=== PATIENT | male | born 1960 | race Caucasian/White ===

== ENCOUNTER 2017-08-20 13:23 | Day surgery (SDC) | payer OTHER ==
[~2017-08-20] VITALS: Ht 170.2 cm; Wt 85.5 kg
[2017-08-20 13:47] VITALS: Ht 170.2 cm; Wt 85.5 kg
[2017-08-20] MEDS ORDERED: [UNRECOGNIZED DRUG - REMARK] (14:03)
[2017-08-20 14:34] VITALS: BP 140/89; PULSE 97; RESP 16
--- NOTE | 2017-08-20 15:15 | OPPN ---
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
[2017-08-20] MEDS ORDERED: FENTAnyl 50 MCG/ML VIAL ONE (15:17)
[2017-08-20] MEDS ORDERED: MIDAZOLAM 1 MG/ML 2 ML INJ ONE ×2 (15:17)
[2017-08-20 15:42] VITALS: BP 140/91; RESP 20
--- NOTE | 2017-08-21 08:39 | GILP ---
DATE OF PROCEDURE: PREOPERATIVE DIAGNOSIS: Rectal bleeding. POSTOPERATIVE DIAGNOSIS: Infiltrating carcinoma extending from rectum about 2 cm above anal verge a ll the way to the rectosigmoid at 12 cm level. Somewhat poor prep in the right colon. DESCRIPTION OF PROCEDURE: The patient was put in left lateral decubitus after obtaining informed co nsent. He was sedated with 3 mg IV Versed and 50 mcg of fentanyl. A rectal exam done. A mass was felt. I advanced an Olympus video colonoscope, immediately I saw infiltrating ulcerated mass extend ing from the rectum about 2 cm above the anal verge all the way to the rectosigmoid at about 12 cm l evel, nearly 10 cm long annular infiltrating carcinoma, bleeds easily. This was photographed and bi opsies were done. Higher up all the way to cecum, the scope was advanced. Due to poor prep, cecum was not well examined and ascending colon, transverse colon, descending colon, sigmoid colon unremar kable except a tumor infiltrating lesion in the rectosigmoid into the rectum. PLAN: Will be to consider CT scan of the abdomen and pelvis with contrast and proceed with rectal u ltrasound and oncological opinion and surgical opinion on this patient immediately. Dictated By: WILEY ALBA Conf#: [id number] DID#: [id number] CC: Elder Carrion;*EndCC*
== END 2017-08-20 20:19 | disposition home or self-care (01) ==
LOC: GIL 13:23
PROVIDERS: ATTEND Internal Medicine
DX: C19 Malignant neoplasm of rectosigmoid junction (principal)
CPT/HCPCS: 45380; 88305; J2250; J3010; Z7610

== ENCOUNTER 2018-08-16 08:27 | Day surgery (SDC) | END 2018-08-16 12:25 | disposition home or self-care (01) ==

== ENCOUNTER 2018-12-23 08:20 | Inpatient (IN) | payer OTHER ==
[~2018-12-23] VITALS: Ht 165.1 cm; Wt 83.7 kg
[2018-12-23] VITALS (33 sets, daily range): BP systolic 121–160; BP diastolic 67–108; PULSE 81–108; RESP 10–19; Ht 165.1 cm; Wt 83.7 kg
[~2018-12-23 08:20] MED LIST: AMPICILLIN/SULB 3 GM/NS (PMX) 100 ML IVPB SCH; SOD CHLORIDE 0.9% 1,000 ML IV ONE; [UNRECOGNIZED DRUG - REMARK]
[2018-12-23] MEDS ORDERED: PEG1POWD PO (08:45)
[2018-12-23] MEDS ORDERED: METO-429 PO (08:46)
[2018-12-23] MEDS ORDERED: MIDAZOLAM 1 MG/ML 2 ML INJ ONE (10:21)
[2018-12-23] MEDS ORDERED: ROCURONIUM 50 MG INJ ONE (10:21)
[2018-12-23] MEDS ORDERED: GLYCOPYRROLATE 0.4 MG INJ ONE (10:21)
[2018-12-23] MEDS ORDERED: PROPOFOL 20 ML ONE (10:21)
[2018-12-23] MEDS ORDERED: CEFAZOLIN 1 GM INJ ONE (10:21)
[2018-12-23] MEDS ORDERED: NEOSTIGMINE 3 MG/3 ML SYRINGE ONE (10:21)
[2018-12-23] MEDS ORDERED: FENTAnyl 50 MCG/ML VIAL ONE (10:22)
[2018-12-23] MEDS ORDERED: ONDANSETRON 4 MG INJ ONE (10:22)
[2018-12-23] MEDS ORDERED: DEXAMETHASONE 4 MG/ML 5 ML INJ ONE (10:22)
[2018-12-23] MEDS ORDERED: morphine SULFATE/PF (10 MG/10 ML) INJ ONE (10:24)
--- NOTE | 2018-12-23 11:07 | PREAC ---
Date/Time of Note Date/Time of Note DATE: 12/23/18 TIME: 11:06 Anesthesia Eval and Record Evaluation Time Pre-Procedure Interview DATE: 12/23/18 TIME: 11:06 Age 58 Sex male NPO: 8 hrs Preoperative diagnosis LOW RECTAL CANCER Planned procedure LOW ANTERIOR RESECTION Past Medical History Past Medical History: Includes Cardio: HTN GI: Obesity Surgery & Anesthesia Issues No known issue Meds Anticoagulation: No Beta Mati within 24 hr: No Reason Beta Mati not given: Pt. not on B-Mati Reported Medications Peg 3350/Na Sulf,Bicarb,Cl/KCl (Golytely Packet) 1 Each Powd.pack, 1 GAL PO ONCE 12/23/18 Discontinued Reported Medications Metoprolol Tartrate* (Lopressor*) 50 Mg Tab, 50 MG PO BID, #60 TAB 12/23/18 [Unknown Stomach Med] No Conflict Check 08/20/17 Current Medications Ampicillin Sodium/ Sulbactam Sodium 100 ml @ 200 mls/hr PRE-OP IVPB ; Start 12/23/18 at 06:00; Stop 12/23/18 at 18:00 Sodium Chloride 1,000 ml @ 75 mls/hr [id number] ONCE IV ; Start 12/23/18 at 06:00; Stop 12/23/18 at 19:19 Meds reviewed: Yes Allergies Coded Allergies: No Known Drug Allergies (Verified Allergy, Unknown, 12/23/18) Allergies Reviewed: Yes Labs/Studies Labs Reviewed: Reviewed by anesthesiologist Blood Bank Test 12/23/18 09:27 Antibody Screen NEGATIVE Blood Product Summary Counts Blood Type O POSITIVE Crossmatch Red Blood Cells test: N/A Studies: ECG (NL), CXR (NAPD) Pre-procedure Exam Last vitals Vital Signs Date Temp Pulse Resp B/P (MAP) Pulse Ox O2 O2 Flow FiO2 Time Delivery Rate 12/23/18 98.2 107 16 160/108 99 Room Air 08:35 (125) Airway: Adequate mouth opening, Adequate thyromental dist Mallampati: Mallampati II Teeth: Normal Lung: Normal Heart: Normal ASA Physical Status ASA physical status: 2 Emergency: None Planned Anesthetic General/MAC: ETT Neuraxial: Epidural Planned Pain Management Epidural, Sub-arachniod narcotics, Parenteral pain med Pre-operative Attestations Prior to commencing anesthesia and surgery, the patient was re-evaluated, there was verification of: *The patient's identity *The results of appropriate recent lab work and preoperative vital signs *The above evaluation not changing prior to induction *Anesthetic plan, risk benefits, alternative and complications discussed with patient/family; questions answered; patient/family understands, accepts and wishes to proceed. Talon Price M.D. Dec 23, 2018 11:07
[2018-12-23] MEDS ORDERED: NALBUPHINE HCL (10 MG/1 ML) INJ IV PRN (11:30)
[2018-12-23] MEDS ORDERED: ONDANSETRON 4 MG INJ IV PRN ×3 (11:30→15:30)
[2018-12-23] MEDS ORDERED: HYDROmorphONE 1 MG/5 ML IV SYRINGE IV PRN ×2 (11:30)
[2018-12-23] MEDS ORDERED: MIDAZOLAM 1 MG/ML 2 ML INJ IV PRN (11:30)
[2018-12-23] MEDS ORDERED: IPRATROPIUM (NEB) 0.5 MG/2.5 ML AMP HHN PRN (11:30)
[2018-12-23] MEDS ORDERED: TRIMETHOBENZAMIDE 100 MG/ML VIAL IM PRN ×2 (11:30)
[2018-12-23] MEDS ORDERED: OXYCODONE/ACETAMINOPHEN (5/325) TAB PO PRN ×2 (11:30)
[2018-12-23] MEDS ORDERED: EPHEDrine SULFATE 50 MG/5 ML SYG IV PRN (11:30)
[2018-12-23] MEDS ORDERED: FENTAnyl 50 MCG/ML VIAL IV PRN ×3 (11:30)
[2018-12-23] MEDS ORDERED: hydrALAzine 20 MG INJ IV PRN (11:30)
[2018-12-23] MEDS ORDERED: NALOXONE (0.4 MG/ML) INJ IV PRN ×2 (11:30→13:00)
[2018-12-23] MEDS ORDERED: DIPHENHYDRAMINE 50 MG INJ IV PRN ×2 (11:30)
[2018-12-23] MEDS ORDERED: HYDROmorphONE 0.5 MG/0.5 ML SYG IV PRN ×2 (11:30)
[2018-12-23] MEDS ORDERED: MEPERIDINE 25 MG INJ IV PRN (11:30)
[2018-12-23] MEDS ORDERED: ALBUTEROL 0.083% (NEB) 2.5 MG/3 ML AMP HHN PRN (11:30)
[2018-12-23] MEDS ORDERED: ROPIVACAINE 0.2% 20 ML VIAL ONE ×2 (11:57→13:12)
[2018-12-23] MEDS ORDERED: PIPER-TAZO 3.375 GM IV (PMX) 100 ML IVPB SCH (12:30)
[2018-12-23] MEDS ORDERED: ACETAMINOPHEN 1000MG/100ML IV 100 ML IVPB PRN (15:30)
[2018-12-23] MEDS ORDERED: morphine 1 MG/ML 30 ML (PCA) IV SCH (15:30)
--- NOTE | 2018-12-23 15:30 | SIPON ---
Date/Time of Note Date/Time of Note DATE: 12/23/18 TIME: 15:27 Operative Report Preoperative Diagnosis Low rectal cancer Postoperative Diagnosis Same Operation/Procedure Performed Low anterior resection with mobilization of the splenic flexure rigid sigmoidoscopy and diverting ileostomy Surgeon see signature line assistant coach Second assist: FELIPE CRESPO MD Anesthesia: general Estimated blood loss: 250 - 300 ml's Transfusion Required none Specimen Distal sigmoid and rectum as well as additional rectal stump and then final distal margin Grafts/Implants none Complications none PRITESH TANNER MD Dec 23, 2018 15:30
[2018-12-23] MEDS: HYDROmorphONE 1 MG/5 ML IV SYRINGE IV PRN ×2 (15:50→16:19)
[2018-12-23] MEDS: LABETALOL HCL 20MG INJ IV PRN ×3 (16:20→16:56)
--- NOTE | 2018-12-23 17:08 | OPR ---
DATE OF OPERATION: 12/23/2018 PREOPERATIVE DIAGNOSIS: Low rectal cancer. POSTOPERATIVE DIAGNOSIS: Low rectal cancer. PROCEDURES: 1. Low anterior resection. 2. Mobilization of splenic flexure. 3. Rigid sigmoidoscopy. 4. Diverting ileostomy. ANESTHESIA: General. ANESTHESIOLOGIST: Talon Price MD SURGEON: Murali Courtney MD FIRST BREAKER FEEDER: Dylan Estes MD and Matt Garcia MD INDICATIONS FOR PROCEDURE: The patient is a 58-year-old male who was previously diagnosed with a rec titi cancer. He underwent neoadjuvant chemotherapy and radiation with relatively good response; howev er, there was evidence of residual tumor on endoscopic ultrasound. The patient was counseled as to t he risks versus benefits of surgery including possible ostomy placement. He consented and was schedu led for surgery. DESCRIPTION OF PROCEDURE: The patient was brought to the operating theater, placed under endotrachea l tube anesthesia. Epidural catheter had been placed previous to induction of anesthesia. The patie nt was then put into lithotomy position and a Hernandez catheter was placed. The abdomen was then shaved , prepped and draped in the usual sterile fashion. A lower midline incision was made from the umbili cus to the symphysis pubis. Subcutaneous tissue was dissected down to the anterior rectus sheath. T he linea alba was incised and the abdomen was opened throughout the course of the skin of the incisio n. The Hardeep retractor was then placed in the standard fashion and the small intestines were gently packed into the upper quadrants of the abdomen. The left colon was mobilized by taking down the lef t white line of Toldt. Dissection then continued into the pelvis. A suitable point of transection a t the rectosigmoid junction was then identified, cleared of its mesentery and the bowel was transecte d with the JEFERSON stapler. A mesorectal dissection of the rectum then took place using a combination of cautery and the LigaSure device. Dissection continued very distal and appeared that the tumor was a t the anorectal junction; therefore the entire rectum was mobilized. The tumor was then palpated and the distal rectum was then transected using the contour stapler. The specimen was removed and gross analysis revealed that the tumor was very close to the margin; therefore additional mobilization of the rectum took place for additional 1 to 2 cm and again, the rectum was transected with a LigaSure d evice. The specimen was analyzed again by attending pathologist, Dr. Dexter Salmon, with frozen se ction. There was no evidence of residual tumor. Preparations for reanastomosis were then made; lemus ritu, it was deemed that the bowel would not reach the necessary anastomotic site of the rectal stump; therefore, it was necessary to completely mobilize the splenic flexure. Anastomosis was then create d using #29 EEA. The descending colon staple line was transected and the #29 anvil was placed in it and using a pursestring device, a pursestring suture was utilized to secure the end of the bowel. Dr Marsha Garcia then went below and inserted the first of dilators then the EEA device. It was identified that there was an opening in the rectal stump. This opening was then oversewn with multiple 2-0 Harry ryl sutures in interrupted fashion. Anastomosis was then created with the EEA device in the standard fashion. Both donuts were intact; however when rigid sigmoidoscopy was performed with warm saline i n the pelvis, there appeared to be some residual air leak; therefore, it was deemed necessary to perf orm diverting ileostomy. At this point, the abdomen was irrigated. Lap, sponge and instrument count s were correct. A suitable point for the ileostomy placement was identified and an elliptical incisi on was made in the right lower quadrant of the abdomen. Subcutaneous tissue was dissected with caute ry down to the anterior rectus sheath. It was scored in cruciate fashion. The rectus fibers were th en spread and the posterior peritoneum and rectus sheath were also transected. A suitable point of t he distal ileum was brought through and the mesentery was cleared and the JEFERSON stapler was then used t o completely transect the intestine. The distal portion was sutured to the dermis of the skin with 2 -0 Prolene suture. The proximal portion was tacked to the abdominal wall fascia. At this point, the abdomen was closed with #1 looped PDS suture in running fashion. It was then irrigated with Betadin e. Final skin approximation took place with skin jennifer. A sterile dressing was applied. The prox imal limb of the ileostomy then underwent transection of the staple line and it was then matured in B rooke fashion with multiple 3-0 chromic sutures and an ileostomy appliance bag was applied. The helio ent tolerated the procedure well. The total blood loss was approximately 300 mL. There were no comp lications and the patient was transported in stable condition to the recovery room. Dictated By: MURALI COURTNEY MD TL/NTS Conf#: [id number] DID#: [id number] CC: CALDERON PEREZ MD;*EndCC*
[2018-12-23] MEDS: D5W-0.45 NACL + KCL 20 MEQ 1,000 ML IV SCH ×2 (17:52→23:30)
[2018-12-23] MEDS: FENTAnyl 2MCG/ML-ROPIV 0.2% 100 ML BAG EPI SCH (20:28)
[2018-12-24 00:15] VITALS: BP 100/96; PULSE 82; RESP 18
[2018-12-24] MEDS: D5W-0.45 NACL + KCL 20 MEQ 1,000 ML IV SCH ×3 (01:37→23:41)
[2018-12-24] MEDS: FENTAnyl 2MCG/ML-ROPIV 0.2% 100 ML BAG EPI SCH ×3 (03:46→20:51)
[2018-12-24 05:10] VITALS: BP 154/90; PULSE 100; RESP 19
--- NOTE | 2018-12-24 06:37 | CONS ---
Assessment/Plan Assessment/Plan Assessment/Plan (Daily) 58-year-old male with a history of rectal cancer status post chemo and radiation with a follow-up endoscopy ultrasound showing a residual tumor. He is now status post resection with diverting ileostomy PLAN Pain management Postop management per surgery Check CBC and CMP in a.m. Consultation Date/Type/Reason Admit Date/Time Dec 23, 2018 at 08:20 Date/Time of Note DATE: 12/24/18 TIME: 06:33 Hx of Present Illness This is a 58-year-old male with history of rectal cancer, status post chemoradiation. Patient now brought to the hospital for rectal surgery because of evidence of residual tumor on endoscopy ultrasound. He already underwent resection with diverting ileostomy. Except occasional pain, currently does not have any complaint. Past Medical History Home Meds Reported Medications Peg 3350/Na Sulf,Bicarb,Cl/KCl (Golytely Packet) 1 Each Powd.pack, 1 GAL PO ONCE 12/23/18 Discontinued Reported Medications Metoprolol Tartrate* (Lopressor*) 50 Mg Tab, 50 MG PO BID, #60 TAB 12/23/18 [Unknown Stomach Med] No Conflict Check 08/20/17 Medications Current Medications Hydromorphone HCl (Dilaudid) 0.2 mg Q2H PRN IV .PAIN 1-5; Start 12/23/18 at 11:30 Hydromorphone HCl (Dilaudid) 0.4 mg Q2H PRN IV .PAIN 6-10; Start 12/23/18 at 11:30 Diphenhydramine HCl (Benadryl) 25 mg Q4H PRN IV .PRURITUS; Start 12/23/18 at 11:30 Nalbuphine HCl (Nubain) 10 mg Q4H PRN IV .PRURITUS; Start 12/23/18 at 11:30 Ondansetron HCl (Zofran Inj) 4 mg Q6H PRN IV .NAUSEA/VOMITING; Start 12/23/18 at 11:30 Trimethobenzamide HCl (Tigan) 200 mg Q6H PRN IM .NAUSEA/VOMITING; Start 12/23/18 at 11:30 Naloxone HCl (Narcan) 0.2 mg Q2M PRN IV .RESP RATE; Start 12/23/18 at 11:30 Miscellaneous Information (* Miscellaneous Pharmacy Order) DURAMORPH: 2 MG E PIDU... GIVEN NEURAXIAL XX ; Start 12/23/18 at 11:30 Fentanyl/ Ropivacaine 100 ml CONT EPIDURAL EPI Last administered on 12/24/18at 03:46; Admin Dose 100 ML; Start 12/23/18 at 11:30 Naloxone HCl (Narcan) 0.2 mg Q2M PRN IV .RESP RATE; Start 12/23/18 at 13:00 Ondansetron HCl (Zofran Inj) 4 mg Q6H PRN IV NAUSEA AND/OR VOMITING; Start 12/23/18 at 15:30 Morphine Sulfate (morphine) 2 MG/HR CONTINUOUS RATE 2... Q4PCA IV ; Start 12/23/18 at 15:30 Potassium Chloride/Dextrose/ Sod Cl 1,000 ml @ 125 mls/hr Q8H IV Last administered on 12/24/18at 01:37; Admin Dose 125 MLS/HR; Start 12/23/18 at 15:30 Acetaminophen 100 ml @ 400 mls/hr Q6H PRN IVPB PAIN; Start 12/23/18 at 15:30; Stop 12/24/18 at 15:29 Clonidine (Catapres) 0.1 mg Q6H PRN PO ELEVATED BLOOD PRESSURE; Start 12/23/18 at 22:00 Allergies: Coded Allergies: No Known Drug Allergies (Verified Allergy, Unknown, 12/23/18) Social History Smoking Status: Never smoker Exam/Review of Systems Exam Vitals Vital Signs Date Temp Pulse Resp B/P (MAP) Pulse Ox O2 O2 Flow FiO2 Time Delivery Rate 12/24/18 98.2 100 19 154/90 99 Nasal 05:10 (111) Cannula 12/23/18 2.0 20:20 Intake and Output 12/23/18 12/23/18 12/24/18 1515:00 23:00 07:00 IntakeIntake Total 3000 ml 0 ml 1390 ml OutputOutput Total 1650 ml 1300 ml 1270 ml BalanceBalance 1350 ml -1300 ml 120 ml Results Results 24hrs Laboratory Tests Test 12/23/18 15:30 Urine Color COLORLESS Urine Clarity CLEAR Urine pH 8.0 Urine Specific [place] 1.008 Urine Ketones NEGATIVE Urine Nitrite NEGATIVE Urine Bilirubin NEGATIVE Urine Urobilinogen NEGATIVE Urine Leukocyte Esterase NEGATIVE Urine Microscopic RBC 33 H Urine Microscopic WBC 1 Urine Mucus FEW A Urine Hemoglobin 2+ H Urine Glucose NEGATIVE Urine Total Protein NEGATIVE Medications Medication Current Medications Hydromorphone HCl (Dilaudid) 0.2 mg Q2H PRN IV .PAIN 1-5; Start 12/23/18 at 11:3 0 Hydromorphone HCl (Dilaudid) 0.4 mg Q2H PRN IV .PAIN 6-10; Start 12/23/18 at 11:30 Diphenhydramine HCl (Benadryl) 25 mg Q4H PRN IV .PRURITUS; Start 12/23/18 at 11:30 Nalbuphine HCl (Nubain) 10 mg Q4H PRN IV .PRURITUS; Start 12/23/18 at 11:30 Ondansetron HCl (Zofran Inj) 4 mg Q6H PRN IV .NAUSEA/VOMITING; Start 12/23/18 at 11:30 Trimethobenzamide HCl (Tigan) 200 mg Q6H PRN IM .NAUSEA/VOMITING; Start 12/23/18 at 11:30 Naloxone HCl (Narcan) 0.2 mg Q2M PRN IV .RESP RATE; Start 12/23/18 at 11:30 Miscellaneous Information (* Miscellaneous Pharmacy Order) DURAMORPH: 2 MG EPIDU... GIVEN NEURAXIAL XX ; Start 12/23/18 at 11:30 Fentanyl/ Ropivacaine 100 ml CONT EPIDURAL EPI Last administered on 12/24/18at 03:46; Admin Dose 100 ML; Start 12/23/18 at 11:30 Naloxone HCl (Narcan) 0.2 mg Q2M PRN IV .RESP RATE; Start 12/23/18 at 13:00 Ondansetron HCl (Zofran Inj) 4 mg Q6H PRN IV NAUSEA AND/OR VOMITING; Start 12/23/18 at 15:30 Morphine Sulfate (morphine) 2 MG/HR CONTINUOUS RATE 2... Q4PCA IV ; Start 12/23/18 at 15:30 Potassium Chloride/Dextrose/ Sod Cl 1,000 ml @ 125 mls/hr Q8H IV Last administered on 12/24/18at 01:37; Admin Dose 125 MLS/HR; Start 12/23/18 at 15:30 Acetaminophen 100 ml @ 400 mls/hr Q6H PRN IVPB PAIN; Start 12/23/18 at 15:30; Stop 12/24/18 at 15:29 Clonidine (Catapres) 0.1 mg Q6H PRN PO ELEVATED BLOOD PRESSURE; Start 12/23/18 at 22:00 ROSAURA COLLINS MD Dec 24, 2018 06:37
[2018-12-24 07:51] VITALS: BP 138/81; PULSE 109; RESP 18
[2018-12-24] MEDS ORDERED: FENTAnyl 2MCG/ML-ROPIV 0.2% 100 ML BAG EPI SCH (11:30)
[2018-12-24 13:42] VITALS: BP 145/85; PULSE 105; RESP 18
--- NOTE | 2018-12-24 15:05 | PN ---
Date/Time of Note Date/Time of Note DATE: 12/24/18 TIME: 14:57 Assessment/Plan VTE Prophylaxis Risk score (from [facility])>0 risk: 10 SCD applied (from [facility]): Yes Pharmacological prophylaxis: other Pharm contraindication: other Lines/Catheters IV [facility] Type (from [facility]): Peripheral IV Urinary Cath still in place: Yes Reason Cath still needed: other (indicate) Assessment/Plan Assessment/Plan 1. Rectal cancer s/p chemo and radiation with residual tumor, s/p anterior resection with diverting ileostomy on 12/23/2018, PRASHANT in place, follow up with mark arreola 2. Leukocytosis, likely surgery related, CXR Result Diagram: 12/24/18 0909 12/24/18 0909 Results 24hrs Laboratory Tests Test 12/23/18 15:30 12/24/18 09:09 Urine Color COLORLESS Urine Clarity CLEAR Urine pH 8.0 Urine Specific [place] 1.008 Urine Ketones NEGATIVE Urine Nitrite NEGATIVE Urine Bilirubin NEGATIVE Urine Urobilinogen NEGATIVE Urine Leukocyte Esterase NEGATIVE Urine Microscopic RBC 33 H Urine Microscopic WBC 1 Urine Mucus FEW A Urine Hemoglobin 2+ H Urine Glucose NEGATIVE Urine Total Protein NEGATIVE White Blood Count 18.5 H Red Blood Count 4.46 L Hemoglobin 13.8 L Hematocrit 39.1 L Mean Corpuscular Volume 87.7 Mean Corpuscular Hemoglobin 30.9 Mean Corpuscular Hemoglobin Concent 35.3 Red Cell Distribution Width 14.3 Platelet Count 203 Mean Platelet Volume 10.5 H Immature Granulocytes % 0.400 Neutrophils % 87.0 H Segmented Neutrophils % (Manual) 69 Band Neutrophils % (Manual) 18 H Lymphocytes % 5.9 L Lymphocytes % (Manual) 7 L Reactive Lymphocytes % (Manual) 4 H Monocytes % 6.6 Monocytes % (Manual) 2 Eosinophils % 0.0 Basophils % 0.1 Nucleated Red Blood Cells % 0.0 Immature Granulocytes # 0.080 H Neutrophils # 16.1 H Neutrophils # (Manual) 13.4 H Band Neutrophils # 3.3 H Lymphocytes (Manual) 1.2 Lymphocytes # 1.1 Reactive Lymphocytes # 0.7 H Monocytes # 1.2 H Monocytes # (Manual) 0.3 Eosinophils # 0.0 Basophils # 0.0 Nucleated Red Blood Cells # 0.0 Platelet Estimate NORMAL Giant Platelets 1 H Polychromasia 1+ Poikilocytosis 1+ Anisocytosis 1+ Microcytosis 1+ Prothrombin Time 15.1 H Prothrombin Time Ratio 1.2 INR International Normalized Ratio 1.18 Activated Partial Thromboplast Time 30.4 Sodium Level 135 Potassium Level 4.0 Chloride Level 103 Carbon Dioxide Level 24 Anion Gap 8 Blood Urea Nitrogen 8 Creatinine 0.66 Est Glomerular Filtrat Rate mL/min > 60 Glucose Level 132 Calcium Level 8.7 Phosphorus Level 1.9 L Magnesium Level 1.9 Subjective 24 Hr Interval Summary Free Text/Dictation abdominal pain on movement Exam/Review of Systems Exam Vitals Vital Signs Date Temp Pulse Resp B/P (MAP) Pulse Ox O2 O2 Flow FiO2 Time Delivery Rate 12/24/18 99.8 105 18 145/85 99 13:42 (105) 12/24/18 Nasal 05:10 Cannula 12/23/18 2.0 20:20 Intake and Output 12/23/18 12/23/18 12/24/18 1515:00 23:00 07:00 IntakeIntake Total 3000 ml 0 ml 1390 ml OutputOutput Total 1650 ml 1300 ml 1270 ml BalanceBalance 1350 ml -1300 ml 120 ml Constitutional: alert, oriented, well developed Head: normocephalic, atraumatic Eyes: nl conjunctiva, EOMI, nl lids, PERRL ENMT: nl external ears & nose, nl lips & teeth, nl nasal mucosa & septum Neck: supple, non-tender Respiratory: clear to auscultation, normal air movement; No congested cough, No crackles/rales, No diminished breath sounds, No intercostal retraction, No labored breathing, No respirations, No tactile fremitus, No wheezing, No other Cardiovascular: regular rate and rhythm, nl pulses; No bruits, No diastolic murmur, No edema, No gallop, No irregular rhythm, No jugular venous distention (JVD), No murmurs/extra sounds, No rub, No systolic murmur, No S3, No S4, No other Gastrointestinal: nl liver, spleen, distended, tender Musculoskeletal: nl extremities to inspection Extremities: normal pulses; No calf tenderness, No cyanosis, No clubbing, No edema, No pitting pedal edema, No palpable cord, No tenderness, No other 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: ASSEMBLIES AND INSTALLATIONS INSPECTOR II-XII intact, nl mental status, nl speech, nl strength Results Results 24hrs Laboratory Tests Test 12/23/18 15:30 12/24/18 09:09 Urine Color COLORLESS Urine Clarity CLEAR Urine pH 8.0 Urine Specific [place] 1.008 Urine Ketones NEGATIVE Urine Nitrite NEGATIVE Urine Bilirubin NEGATIVE Urine Urobilinogen NEGATIVE Urine Leukocyte Esterase NEGATIVE Urine Microscopic RBC 33 H Urine Microscopic WBC 1 Urine Mucus FEW A Urine Hemoglobin 2+ H Urine Glucose NEGATIVE Urine Total Protein NEGATIVE White Blood Count 18.5 H Red Blood Count 4.46 L Hemoglobin 13.8 L Hematocrit 39.1 L Mean Corpuscular Volume 87.7 Mean Corpuscular Hemoglobin 30.9 Mean Corpuscular Hemoglobin Concent 35.3 Red Cell Distribution Width 14.3 Platelet Count 203 Mean Platelet Volume 10.5 H Immature Granulocytes % 0.400 Neutrophils % 87.0 H Segmented Neutrophils % (Manual) 69 Band Neutrophils % (Manual) 18 H Lymphocytes % 5.9 L Lymphocytes % (Manual) 7 L Reactive Lymphocytes % (Manual) 4 H Monocytes % 6.6 Monocytes % (Manual) 2 Eosinophils % 0.0 Basophils % 0.1 Nucleated Red Blood Cells % 0.0 Immature Granulocytes # 0.080 H Neutrophils # 16.1 H Neutrophils # (Manual) 13.4 H Band Neutrophils # 3.3 H Lymphocytes (Manual) 1.2 Lymphocytes # 1.1 Reactive Lymphocytes # 0.7 H Monocytes # 1.2 H Monocytes # (Manual) 0.3 Eosinophils # 0.0 Basophils # 0.0 Nucleated Red Blood Cells # 0.0 Platelet Estimate NORMAL Giant Platelets 1 H Polychromasia 1+ Poikilocytosis 1+ Anisocytosis 1+ Microcytosis 1+ Prothrombin Time 15.1 H Prothrombin Time Ratio 1.2 INR International Normalized Ratio 1.18 Activated Partial Thromboplast Time 30.4 Sodium Level 135 Potassium Level 4.0 Chloride Level 103 Carbon Dioxide Level 24 Anion Gap 8 Blood Urea Nitrogen 8 Creatinine 0.66 Est Glomerular Filtrat Rate mL/min > 60 Glucose Level 132 Calcium Level 8.7 Phosphorus Level 1.9 L Magnesium Level 1.9 Medications Medication Current Medications Hydromorphone HCl (Dilaudid) 0.2 mg Q2H PRN IV .PAIN 1-5; Start 12/23/18 at 11:30 Hydromorphone HCl (Dilaudid) 0.4 mg Q2H PRN IV .PAIN 6-10; Start 12/23/18 at 11:30 Diphenhydramine HCl (Benadryl) 25 mg Q4H PRN IV .PRURITUS; Start 12/23/18 at 1 1:30 Nalbuphine HCl (Nubain) 10 mg Q4H PRN IV .PRURITUS; Start 12/23/18 at 11:30 Ondansetron HCl (Zofran Inj) 4 mg Q6H PRN IV .NAUSEA/VOMITING; Start 12/23/18 at 11:30 Trimethobenzamide HCl (Tigan) 200 mg Q6H PRN IM .NAUSEA/VOMITING; Start 12/23/18 at 11:30 Naloxone HCl (Narcan) 0.2 mg Q2M PRN IV .RESP RATE; Start 12/23/18 at 11:30 Miscellaneous Information (* Miscellaneous Pharmacy Order) DURAMORPH: 2 MG EPIDU... GIVEN NEURAXIAL XX ; Start 12/23/18 at 11:30 Naloxone HCl (Narcan) 0.2 mg Q2M PRN IV .RESP RATE; Start 12/23/18 at 13:00 Ondansetron HCl (Zofran Inj) 4 mg Q6H PRN IV NAUSEA AND/OR VOMITING; Start 12/23/18 at 15:30 Morphine Sulfate (morphine) 2 MG/HR CONTINUOUS RATE 2... Q4PCA IV ; Start 12/23/18 at 15:30 Potassium Chloride/Dextrose/ Sod Cl 1,000 ml @ 125 mls/hr Q8H IV Last admin istered on 12/24/18at 09:57; Admin Dose 125 MLS/HR; Start 12/23/18 at 15:30 Acetaminophen 100 ml @ 400 mls/hr Q6H PRN IVPB PAIN; Start 12/23/18 at 15:30; Stop 12/24/18 at 15:29 Clonidine (Catapres) 0.1 mg Q6H PRN PO ELEVATED BLOOD PRESSURE; Start 12/23/18 at 22:00 Fentanyl/ Ropivacaine 100 ml CONT EPIDURAL EPI Last administered on 12/24/18at 11:36; Admin Dose 100 ML; Start 12/24/18 at 11:30 EL LYNN MD Dec 24, 2018 15:05
--- NOTE | 2018-12-24 16:09 | PN ---
DATE: 12/23/2018 1. Postop day #1 status post resection of the residual cancer of the rectum, status post neoadjuvant and radiation therapy. 2. Colorectal anastomosis with jennifer. 3. Total complete diverting ileostomy. SUBJECTIVE: No specific complaint. Pain is under control with epidural. No nausea, no vomiting. T he patient has NG tube, which is draining gastric juice. Also, patient has Hernandez catheter. OBJECTIVE: GENERAL: Awake, alert. VITAL SIGNS: Temperature maximum 99.8, heart rate 105, respiration 18, blood pressure 145/85, satura tion 99% on room air. HEAD AND NECK: Normocephalic. NG tube is in place, is functioning. CHEST: Symmetrical expansion of hemithoraces. LUNGS: Decreased breathing sound at bases. HEART: Regular. ABDOMEN: Not distended. Bowel sounds hypoactive. Ileostomy bag on the ileostomy site. Bran-Pra tt drain is in place. Hernandez catheter is in place. SCD in place. I's and O's: Bran-Noel has dr ained 120 mL and NG tube has drained 350 mL gastric juice. No bile from today morning. Now it is 4 p.m. LABORATORY DATA: WBC increased to 18,500 with 87% neutrophils, with shift to the left, hemoglobin 13 .8, hematocrit 39. Chemistry: Sodium, potassium, BUN, creatinine within normal limits. Urine micro scopic hematuria. ASSESSMENT: Postop day #1 with low anterior resection of recurrent cancer of the rectum and end-to-e nd anastomosis with placement of complete diverting ileostomy for protection of the anastomosis. The patient so far is stable. Leukocytosis is accepted and expected. PLAN: Will add incentive spirometry to the treatment regimen for the patient to do it every hour whi le he is awake. Continue IV fluids with potassium. Continue epidural. Continue Hernandez catheter. Co ntinue NG tube. We will continue to follow the patient along with the medical colleagues. Dictated By: EDELMIRA ALEJO MD PS/NTS Conf#: [id number] DID#: [id number] CC: PRITESH TANNER MD;*EndCC*
[2018-12-24] MEDS ORDERED: POTASSIUM PHOSPHATE 30 MM in SOD CHLORIDE 0.9% 250 ML IVPB ONE (17:00)
[2018-12-24 19:55] VITALS: BP 140/80; PULSE 100; RESP 18
[2018-12-24 23:49] VITALS: BP 132/88; PULSE 108; RESP 18
[2018-12-25] MEDS: FENTAnyl 2MCG/ML-ROPIV 0.2% 100 ML BAG EPI SCH ×3 (04:18→21:07)
[2018-12-25 08:59] VITALS: BP 129/80; PULSE 115; RESP 18
[2018-12-25] MEDS: D5W-0.45 NACL + KCL 20 MEQ 1,000 ML IV SCH ×2 (10:05→17:43)
[2018-12-25 13:41] VITALS: BP 133/83; PULSE 125; RESP 19
[2018-12-25] MEDS ORDERED: SOD CHLORIDE 0.9% 500 ML IV ONE (15:30)
--- NOTE | 2018-12-25 15:30 | PN ---
Date/Time of Note Date/Time of Note DATE: 12/25/18 TIME: 15:28 Assessment/Plan VTE Prophylaxis [place] [facility] [place] risk: 3 SCD applied (from [facility] [place] Yes Pharmacological prophylaxis: other Pharm contraindication: other Lines/Catheters IV [facility]atheter Type (from [facility]): Peripheral IV Urinary Cath still in place: Yes Reason Cath still needed: other (indicate) Assessment/Plan Assessment/Plan 1. Rectal cancer s/p chemo and radiation with residual tumor, s/p anterior resection with diverting ileostomy on 12/23/2018, PRASHANT in place, follow up with mark arreola 2. Leukocytosis, likely surgery related, no evidence of infection 3. Sinus tachycardia, multifactorial, IVF bolus, may need small dose of metoprolol if no improvement Result Diagram: 12/25/1885812/25/18 0859 Results 24hrs Laboratory Tests Test 12/25/18 08:59 White Blood Count 14.7 #H Red Blood Count 4.27 L Hemoglobin 13.0 L Hematocrit 38.2 L Mean Corpuscular Volume 89.5 Mean Corpuscular Hemoglobin 30.4 Mean Corpuscular Hemoglobin Concent 34.0 Red Cell Distribution Width 14.7 H Platelet Count 190 Mean Platelet Volume 10.6 H Immature Granulocytes % 0.500 H Neutrophils % 86.8 H Lymphocytes % 8.3 L Monocytes % 4.2 Eosinophils % 0.1 Basophils % 0.1 Nucleated Red Blood Cells % 0.0 Immature Granulocytes # 0.080 H Neutrophils # 12.8 H Lymphocytes # 1.2 Monocytes # 0.6 Eosinophils # 0.0 Basophils # 0.0 Nucleated Red Blood Cells # 0.0 Prothrombin Time 14.0 Prothrombin Time Ratio 1.1 INR International Normalized Ratio 1.07 Activated Partial Thromboplast Time 37.6 H Sodium Level 136 Potassium Level 4.3 Chloride Level 106 Carbon Dioxide Level 25 Anion Gap 5 Blood Urea Nitrogen 11 Creatinine 0.72 Est Glomerular Filtrat Rate mL/min > 60 Glucose Level 111 Calcium Level 8.8 Phosphorus Level 2.2 L Magnesium Level 2.1 Subjective 24 Hr Interval Summary Free Text/Dictation abdominal pain Exam/Review of Systems Exam Vitals Vital Signs Date Temp Pulse Resp B/P (MAP) Pulse Ox O2 O2 Flow FiO2 Time Delivery Rate 12/25/18 98.3 125 19 133/83 98 Room Air 13:41 (100) 12/24/18 2.0 23:49 Intake and Output 12/24/18 12/24/18 12/25/18 1515:00 23:00 07:00 IntakeIntake Total 375 ml 1085 ml 875 ml OutputOutput Total 1350 ml 1700 ml 1020 ml BalanceBalance -975 ml -615 ml -145 ml Constitutional: alert, oriented, well developed Psych: no complaints, nl mood/affect Head: normocephalic, atraumatic Eyes: nl conjunctiva, EOMI, nl lids, nl sclera, PERRL ENMT: nl external ears & nose, nl lips & teeth, nl nasal mucosa & septum Neck: supple, non-tender Respiratory: clear to auscultation, normal air movement; No congested cough, No crackles/rales, No diminished breath sounds, No intercostal retraction, No labored breathing, No respirations, No tactile fremitus, No wheezing, No other Cardiovascular: regular rate and rhythm, nl pulses; No bruits, No diastolic murmur, No edema, No gallop, No irregular rhythm, No jugular venous distention (JVD), No murmurs/extra sounds, No rub, No systolic murmur, No S3, No S4, No other Gastrointestinal: distended, tender Musculoskeletal: nl extremities to inspection Extremities: normal pulses; No calf tenderness, No cyanosis, No clubbing, No edema, No pitting pedal ed kiesha, No palpable cord, No tenderness, No other 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: 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 TECHNOLOGIST II-XII intact, nl mental status, nl speech, nl strength Results Results 24hrs Laboratory Tests Test 12/25/18 08:59 White Blood Count 14.7 #H Red Blood Count 4.27 L Hemoglobin 13.0 L Hematocrit 38.2 L Mean Corpuscular Volume 89.5 Mean Corpuscular Hemoglobin 30.4 Mean Corpuscular Hemoglobin Concent 34.0 Red Cell Distribution Width 14.7 H Platelet Count 190 Mean Platelet Volume 10.6 H Immature Granulocytes % 0.500 H Neutrophils % 86.8 H Lymphocytes % 8.3 L Monocytes % 4.2 Eosinophils % 0.1 Basophils % 0.1 Nucleated Red Blood Cells % 0.0 Immature Granulocytes # 0.080 H Neutrophils # 12.8 H Lymphocytes # 1.2 Monocytes # 0.6 Eosinophils # 0.0 Basophils # 0.0 Nucleated Red Blood Cells # 0.0 Prothrombin Time 14.0 Prothrombin Time Ratio 1.1 INR International Normalized Ratio 1.07 Activated Partial Thromboplast Time 37.6 H Sodium Level 136 Potassium Level 4.3 Chloride Level 106 Carbon Dioxide Level 25 Anion Gap 5 Blood Urea Nitrogen 11 Creatinine 0.72 Est Glomerular Filtrat Rate mL/min > 60 Glucose Level 111 Calcium Level 8.8 Phosphorus Level 2.2 L Magnesium Level 2.1 Medications Medication Current Medications Hydromorphone HCl (Dilaudid) 0.2 mg Q2H PRN IV .PAIN 1-5; Start 12/23/18 at 11:30 Hydromorphone HCl (Dilaudid) 0.4 mg Q2H PRN IV .PAIN 6-10; Start 12/23/18 at 11:30 Diphenhydramine HCl (Benadryl) 25 mg Q4H PRN IV .PRURITUS; Start 12/23/18 at 11:30 Nalbuphine HCl (Nubain) 10 mg Q4H PRN IV .PRURITUS; Start 12/23/18 at 11:30 Ondansetron HCl (Zofran Inj) 4 mg Q6H PRN IV .NAUSEA/VOMITING; Start 12/23/18 at 11:30 Trimethobenzamide HCl (Tigan) 200 mg Q6H PRN IM .NAUSEA/VOMITING; Start 12/23/18 at 11:30 Naloxone HCl (Narcan) 0.2 mg Q2M PRN IV .RESP RATE; Start 12/23/18 at 11:30 Miscellaneous Information (* Miscellaneous Pharmacy Order) DURAMORPH: 2 MG EPIDU... GIVEN NEURAXIAL XX ; Start 12/23/18 at 11:30 Naloxone HCl (Narcan) 0.2 mg Q2M PRN IV .RESP RATE; Start 12/23/18 at 13:00 Ondansetron HCl (Zofran Inj) 4 mg Q6H PRN IV NAUSEA AND/OR VOMITING; Start 12/23/18 at 15:30 Morphine Sulfate (morphine) 2 MG/HR CONTINUOUS RATE 2... Q4PCA IV ; Start 12/23/18 at 15:30 Potassium Chloride/Dextrose/ Sod Cl 1,000 ml @ 100 mls/hr Q10H IV Last administered on 12/25/18at 10:05; Admin Dose 100 MLS/HR; Start 12/23/18 at 15:30 Clonidine (Catapres) 0.1 mg Q6H PRN PO ELEVATED BLOOD PRESSURE; Start 12/23/18 at 22:00 Fentanyl/ Ropivacaine 100 ml CONT EPIDURAL EPI Last administered on 12/25/18at 12:19; Admin Dose 100 ML; Start 12/24/18 at 11:30 EL LYNN MD Dec 25, 2018 15:30
--- NOTE | 2018-12-25 16:41 | PN ---
DATE: 12/25/2018 Postop day #2 status post low anterior resection of the cancer of the rectum and colorectal anastomosis and placement of diverting end ileostomy for protection of the anastomosis. SUBJECTIVE: No complaint. OBJECTIVE: GENERAL: Alert and awake. VITAL SIGNS: Temperature 98.6 maximum, heart rate 115, respirations 18, blood pressure 129/80, saturation 99% on room air. SKIN: The patient has NG tube. The patient has Hernandez catheter. There is an ileostomy bag. EXTREMITIES: SCDs on the legs. HEART: Regular, slight tachycardia. LUNGS: Clear. Decreased breathing sound at bases. ABDOMEN: Slightly distended. Bowel sounds are hypoactive. Ileostomy is not functioning yet. INPUT AND OUTPUT: Urine output was 3400 mL in the past 24 hours. NG tube drainage in the past 24 hours was 600 mL; mainly gastric juice, slightly greenish change color. LABORATORY DATA: Today, WBC 14,700 with 86% neutrophils, hemoglobin 13, hematocrit 38.2. Chemistry: Sodium, potassium, BUN, creatinine are within normal limits. ASSESSMENT AND PLAN: A 58-year-old status post low anterior resection for cancer of rectum and end-to-end anastomosis with diverting ileostomy for protection. The patient has NG tube which we will keep it for the time being. The ileostomy starts functioning properly. The patient has Hernandez catheter and has epidural. Keep the Hernandez still in place, SCD in place. Encourage incentive spirometry. The Bran-Noel drain in the pelvis has drained 60 mL in the past 24 hours. Continue current care. Continue keeping the Hernandez tube in place maybe in a couple of days. When the epidural is discontinued, then the patient can be active and mobilize. For the time being, SCDs and incentive spirometry testing of the patient. Dictated By: EDELMIRA ALEJO MD PS/NTS Conf#: [id number] DID#: [id number] CC: PRITESH TANNER MD; CALDERON PEREZ MD; EL LYNN MD;*EndCC* MTDD
[2018-12-25 17:53] VITALS: BP 149/97; PULSE 117; RESP 18
[2018-12-25 19:45] VITALS: BP 148/95; PULSE 117; RESP 20
[2018-12-26 00:07] VITALS: BP 136/96; PULSE 107; RESP 20
[2018-12-26] MEDS: D5W-0.45 NACL + KCL 20 MEQ 1,000 ML IV SCH ×2 (02:58→14:16)
[2018-12-26 04:00] VITALS: BP 139/88; PULSE 97; RESP 20
[2018-12-26] MEDS: FENTAnyl 2MCG/ML-ROPIV 0.2% 100 ML BAG EPI SCH (04:15)
[2018-12-26 08:30] VITALS: BP 136/90; PULSE 99; RESP 19
--- NOTE | 2018-12-26 11:09 | OPPN ---
Date/Time of Note Date/Time of Note DATE: 12/26/18 TIME: 11:05 Event Note Pt Marta Patel postop day #3 status post low anterior resection of the cancer of the rectum and colorectal anastomosis and placement of diverting end ileostomy for protection of the anastomosis with Epidural for post op pain management. Epidural pulled. Tip Intact. ADELA SAEZ CRNA Dec 26, 2018 11:09
[2018-12-26 14:35] VITALS: BP 132/86; PULSE 103; RESP 18
--- NOTE | 2018-12-26 15:22 | PN ---
Date/Time of Note Date/Time of Note DATE: 12/26/18 TIME: 15:20 Assessment/Plan VTE Prophylaxis [place] [facility] [place]: 8 SCD applied [place] [facility] [place] Yes Pharmacological prophylaxis: other Pharm contraindication: other Lines/Catheters IV [facility] Type (from [facility] Peripheral IV Urinary Cath still in place: Yes Reason Cath still needed: other (indicate) Assessment/Plan Assessment/Plan 1. Rectal cancer s/p chemo and radiation with residual tumor, s/p anterior resection with diverting ileostomy on 12/23/2018, PRASHANT in place, follow up with mark arreola 2. Leukocytosis, likely surgery related, no evidence of infection 3. Sinus tachycardia, multifactorial, improving with IVF Result Diagram: 12/26/18 1025 12/26/18 1030 Results 24hrs Laboratory Tests Test 12/26/18 10:25 12/26/18 10:30 White Blood Count 11.7 #H Red Blood Count 4.05 L Hemoglobin 12.5 L Hematocrit 36.6 L Mean Corpuscular Volume 90.4 Mean Corpuscular Hemoglobin 30.9 Mean Corpuscular Hemoglobin Concent 34.2 Red Cell Distribution Width 14.5 Platelet Count 191 Mean Platelet Volume 10.2 Immature Granulocytes % 0.800 H Neutrophils % 82.1 H Lymphocytes % 7.7 L Monocytes % 6.2 Eosinophils % 2.9 Basophils % 0.3 Nucleated Red Blood Cells % 0.0 Immature Granulocytes # 0.090 H Neutrophils # 9.6 H Lymphocytes # 0.9 Monocytes # 0.7 Eosinophils # 0.3 Basophils # 0.0 Nucleated Red Blood Cells # 0.0 Prothrombin Time 13.1 Prothrombin Time Ratio 1.0 INR International Normalized Ratio 0.98 Activated Partial Thromboplast Time 31.6 Sodium Level 135 Potassium Level 4.2 Chloride Level 105 Carbon Dioxide Level 24 Anion Gap 6 Blood Urea Nitrogen 9 Creatinine 0.69 Est Glomerular Filtrat Rate mL/min > 60 Glucose Level 109 Calcium Level 8.4 Phosphorus Level 2.4 L Magnesium Level 2.4 Subjective 24 Hr Interval Summary Free Text/Dictation less abdominal pain, afebrile Exam/Review of Systems Exam Vitals Vital Signs Date Temp Pulse Resp B/P (MAP) Pulse Ox O2 O2 Flow FiO2 Time Delivery Rate 12/26/18 98.8 103 18 132/86 96 Room Air 14:35 (101) 12/26/18 2.0 08:00 Intake and Output 12/25/18 12/25/18 12/26/18 1515:00 23:00 07:00 IntakeIntake Total 200 ml 1000 ml 1200 ml OutputOutput Total 530 ml 840 ml BalanceBalance 200 ml 470 ml 360 ml Constitutional: alert, oriented, well developed Psych: no complaints, nl mood/affect Head: normocephalic, atraumatic Eyes: nl conjunctiva, EOMI, nl lids ENMT: nl external ears & nose, nl lips & teeth, nl nasal mucosa & septum Neck: supple, non-tender Respiratory: clear to auscultation, normal air movement; No congested cough, No crackles/rales, No diminished breath sounds, No intercostal retraction, No labored breathing, No respirations, No tactile fremitus, No wheezing, No other Cardiovascular: regular rate and rhythm, nl pulses; No bruits, No diastolic murmur, No edema, No gallop, No irregular rhythm, No jugular venous distention (JVD), No murmurs/extra sounds, No rub, No systolic murmur, No S3, No S4, No other Gastrointestinal: nl liver, spleen, tender Musculoskeletal: nl extremities to inspection Extremities: normal pulses; No calf tenderness, No cyanosis, No clubbing, No edema, No pitting pedal edema, No palpable cord, No tenderness, No other 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: KNIT GOODS MENDER II-XII intact, nl mental status, nl speech, nl strength Results Results 24hrs Laboratory Tests Test 12/26/18 10:25 12/26/18 10:30 White Blood Count 11.7 #H Red Blood Count 4.05 L Hemoglobin 12.5 L Hematocrit 36.6 L Mean Corpuscular Volume 90.4 Mean Corpuscular Hemoglobin 30.9 Mean Corpuscular Hemoglobin Concent 34.2 Red Cell Distribution Width 14.5 Platelet Count 191 Mean Platelet Volume 10.2 Immature Granulocytes % 0.800 H Neutrophils % 82.1 H Lymphocytes % 7.7 L Monocytes % 6.2 Eosinophils % 2.9 Basophils % 0.3 Nucleated Red Blood Cells % 0.0 Immature Granulocytes # 0.090 H Neutrophils # 9.6 H Lymphocytes # 0.9 Monocytes # 0.7 Eosinophils # 0.3 Basophils # 0.0 Nucleated Red Blood Cells # 0.0 Prothrombin Time 13.1 Prothrombin Time Ratio 1.0 INR International Normalized Ratio 0.98 Activated Partial Thromboplast Time 31.6 Sodium Level 135 Potassium Level 4.2 Chloride Level 105 Carbon Dioxide Level 24 Anion Gap 6 Blood Urea Nitrogen 9 Creatinine 0.69 Est Glomerular Filtrat Rate mL/min > 60 Glucose Level 109 Calcium Level 8.4 Phosphorus Level 2.4 L Magnesium Level 2.4 Medications Medication Current Medications Hydromorphone HCl (Dilaudid) 0.2 mg Q2H PRN IV .PAIN 1-5; Start 12/23/18 at 11:30 Hydromorphone HCl (Dilaudid) 0.4 mg Q2H PRN IV .PAIN 6-10; Start 12/23/18 at 11:30 Diphenhydramine HCl (Benadryl) 25 mg Q4H PRN IV .PRURITUS; Start 12/23/18 at 11:30 Nalbuphine HCl (Nubain) 10 mg Q4H PRN IV .PRURITUS; Start 12/23/18 at 11:30 Ondansetron HCl (Zofran Inj) 4 mg Q6H PRN IV .NAUSEA/VOMITING; Start 12/23/18 at 11:30 Trimethobenzamide HCl (Tigan) 200 mg Q6H PRN IM .NAUSEA/VOMITING; Start 12/23/18 at 11:30 Naloxone HCl (Narcan) 0.2 mg Q2M PRN IV .RESP RATE; Start 12/23/18 at 11:30 Miscellaneous Information (* Miscellaneous Pharmacy Order) DURAMORPH: 2 MG EPIDU... GIVEN NEURAXIAL XX ; Start 12/23/18 at 11:30 Naloxone HCl (Narcan) 0.2 mg Q2M PRN IV .RESP RATE; Start 12/23/18 at 13:00 Ondansetron HCl (Zofran Inj) 4 mg Q6H PRN IV NAUSEA AND/OR VOMITING; Start 12/23/18 at 15:30 Morphine Sulfate (morphine) 2 MG/HR CONTINUOUS RATE 2... Q4PCA IV ; Start 12/23/18 at 15:30 Potassium Chloride/Dextrose/ Sod Cl 1,000 ml @ 100 mls/hr Q10H IV Last administered on 12/26/18at 14:16; Admin Dose 100 MLS/HR; Start 4/8/19 at 15:30 Clonidine (Catapres) 0.1 mg Q6H PRN PO ELEVATED BLOOD PRESSURE; Start 12/23/18 at 22:00 Fentanyl/ Ropivacaine 100 ml CONT EPIDURAL EPI Last administered on 12/26/18at 04:15; Admin Dose 100 ML; Start 12/24/18 at 11:30 Piperacillin Sod/ Tazobactam Sod 100 ml @ 200 mls/hr Q6 IVPB ; Start 12/26/18 at 15:30 EL LYNN MD Dec 26, 2018 15:22
[2018-12-26] MEDS: PIPER-TAZO 3.375 GM IV (PMX) 100 ML IVPB SCH ×2 (15:58→20:59)
--- NOTE | 2018-12-26 18:43 | PN ---
DATE: 12/26/2018 Postop day #3 status post laparotomy, rectosigmoid resection for cancer of the rectum and colorectal anastomosis, placement of diverting ileostomy and placement of Bran-Noel drain in the pelvis. SUBJECTIVE: No complaint. OBJECTIVE: GENERAL: Awake, alert, oriented, no acute distress. VITAL SIGNS: Temperature maximum 98.8, heart rate 103, respirations 18, blood pressure 132/86, saturation 96% on room air. LABORATORY DATA: WBC down to 11,700 and 82% segmented, hemoglobin 12.5, hematocrit 36.6. Chemistry: Sodium, potassium, BUN and creatinine within normal limits. Phosphorus is low at 2.4. The medical services want to replace that. INTAKE AND OUTPUT: The NG tube in the past 24 hours has drained 700 mL of greenish fluid. Urine output 600 mL, in the past 24 hours 3400 mL and since morning until now 600 mL. Ileostomy bag: There is no bowel content in the ileostomy bag yet. The nurse is reporting that the Bran-Noel drainage has some brownish in color and smells very bad, so I am not sure what is the source of this but the fact is that when the anastomosis was performed and anastomosis was tested, there was slight amount of bubbling of the air, which was insufflated into the rectum from the anal area by the surgeon and showed some bubbles, so probably there is a tiny leak in the anastomosis down in the pelvis and that is why we are expecting and we placed a diverting ileostomy to protect that anastomosis and assist with the healing. PLAN: Continue current care. Ambulate the patient with help from physical therapy. It should be mentioned that somehow the epidural catheter has been removed last night and, therefore, the patient is not receiving any more epidural. He has full range of motion of the lower extremity. We will continue to follow the patient along with other colleagues. Dictated By: EDELMIRA ALEJO MD PS/NTS Conf#: [id number] DID#: [id number] CC: PRITESH TANNER MD;*EndCC* MTDD
[2018-12-26 19:50] VITALS: BP 143/93; PULSE 99; RESP 20
[2018-12-27] MEDS: PIPER-TAZO 3.375 GM IV (PMX) 100 ML IVPB SCH ×4 (01:59→17:26)
[2018-12-27 02:50] VITALS: BP 126/81; PULSE 98; RESP 20
[2018-12-27] MEDS: D5W-0.45 NACL + KCL 20 MEQ 1,000 ML IV SCH ×3 (03:30→23:30)
[2018-12-27 08:03] VITALS: BP 134/90; PULSE 99; RESP 20
[2018-12-27 15:14] VITALS: BP 131/78; PULSE 82; RESP 18
--- NOTE | 2018-12-27 15:24 | PN ---
Date/Time of Note Date/Time of Note DATE: 12/27/18 TIME: 15:21 Assessment/Plan VTE Prophylaxis Risk score (from [facility])>0 risk: 10 SCD applied (from [facility]): Yes Pharmacological prophylaxis: heparin Lines/Catheters IV [facility]atheter Type (from [facility]): Peripheral IV Urinary Cath still in place: Yes Reason Cath still needed: other (indicate) Assessment/Plan Assessment/Plan 1. Rectal cancer s/p chemo and radiation with residual tumor, s/p anterior resection with diverting ileostomy on 12/23/2018, stable, ?remove NG tube per surgery 2. Leukocytosis, surgery related, no evidence of infection 3. DVT prophylaxis: heparin Result Diagram: 12/27/1844912/27/180 Results 24hrs Laboratory Tests Test 12/27/18 04:50 White Blood Count 9.8 Red Blood Count 4.08 L Hemoglobin 12.5 L Hematocrit 36.3 L Mean Corpuscular Volume 89.0 Mean Corpuscular Hemoglobin 30.6 Mean Corpuscular Hemoglobin Concent 34.4 Red Cell Distribution Width 14.1 Platelet Count 227 Mean Platelet Volume 10.3 Immature Granulocytes % 0.500 H Neutrophils % 77.8 H Lymphocytes % 9.4 L Monocytes % 8.3 Eosinophils % 3.7 Basophils % 0.3 Nucleated Red Blood Cells % 0.0 Immature Granulocytes # 0.050 H Neutrophils # 7.6 H Lymphocytes # 0.9 Monocytes # 0.8 Eosinophils # 0.4 Basophils # 0.0 Nucleated Red Blood Cells # 0.0 Sodium Level 137 Potassium Level 3.9 Chloride Level 106 Carbon Dioxide Level 24 Anion Gap 7 Blood Urea Nitrogen 9 Creatinine 0.70 Est Glomerular Filtrat Rate mL/min > 60 Glucose Level 115 Calcium Level 8.7 Total Bilirubin 0.9 Direct Bilirubin 0.00 Indirect Bilirubin 0.9 Aspartate Amino Transf (AST/SGOT) 30 Alanine Aminotransferase (ALT/SGPT) 20 Alkaline Phosphatase 93 Total Protein 6.4 Albumin 3.1 L Globulin 3.30 H Albumin/Globulin Ratio 0.93 Subjective 24 Hr Interval Summary Free Text/Dictation less abdominal pain Exam/Review of Systems Exam Vitals Vital Signs Date Temp Pulse Resp B/P (MAP) Pulse Ox O2 O2 Flow FiO2 Time Delivery Rate 12/27/18 98.2 82 18 131/78 96 15:14 (95) 12/27/18 Room Air 08:03 12/26/18 2.0 08:00 Intake and Output 12/26/18 12/26/18 12/27/18 1515:00 23:00 07:00 IntakeIntake Total 800 ml 450 ml 950 ml OutputOutput Total 120 ml 1580 ml 1270 ml BalanceBalance 680 ml -1130 ml -320 ml Constitutional: alert, oriented, well developed Head: normocephalic, atraumatic Eyes: nl conjunctiva, EOMI, nl lids ENMT: nl external ears & nose, nl lips & teeth, nl nasal mucosa & septum Neck: supple, non-tender Respiratory: clear to auscultation, normal air movement; No congested cough, No crackles/rales, No diminished breath sounds, No intercostal retraction, No labored breathing, No respirations, No tactile fremitus, No wheezing, No other Cardiovascular: regular rate and rhythm, nl pulses; No bruits, No diastolic murmur, No edema, No gallop, No irregular rhythm, No jugular venous distention (JVD), No murmurs/extra sounds, No rub, No systolic murmur, No S3, No S4, No other Gastrointestinal: bowel sounds, tender, other (ostomy bag with output) Musculoskeletal: nl extremities to inspection Extremities: normal pulses; No calf tenderness, No cyanosis, No clubbing, No edema, No pitting pedal edema, No palpable cord, No tenderness, No other 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, nl mental status, nl speech, nl strength Results Results 24hrs Laboratory Tests Test 12/27/18 04:50 White Blood Count 9.8 Red Blood Count 4.08 L Hemoglobin 12.5 L Hematocrit 36.3 L Mean Corpuscular Volume 89.0 Mean Corpuscular Hemoglobin 30.6 Mean Corpuscular Hemoglobin Concent 34.4 Red Cell Distribution Width 14.1 Platelet Count 227 Mean Platelet Volume 10.3 Immature Granulocytes % 0.500 H Neutrophils % 77.8 H Lymphocytes % 9.4 L Monocytes % 8.3 Eosinophils % 3.7 Basophils % 0.3 Nucleated Red Blood Cells % 0.0 Immature Granulocytes # 0.050 H Neutrophils # 7.6 H Lymphocytes # 0.9 Monocytes # 0.8 Eosinophils # 0.4 Basophils # 0.0 Nucleated Red Blood Cells # 0.0 Sodium Level 137 Potassium Level 3.9 Chloride Level 106 Carbon Dioxide Level 24 Anion Gap 7 Blood Urea Nitrogen 9 Creatinine 0.70 Est Glomerular Filtrat Rate mL/min > 60 Glucose Level 115 Calcium Level 8.7 Total Bilirubin 0.9 Direct Bilirubin 0.00 Indirect Bilirubin 0.9 Aspartate Amino Transf (AST/SGOT) 30 Alanine Aminotransferase (ALT/SGPT) 20 Alkaline Phosphatase 93 Total Protein 6.4 Albumin 3.1 L Globulin 3.30 H Albumin/Globulin Ratio 0.93 Medications Medication Current Medications Hydromorphone HCl (Dilaudid) 0.2 mg Q2H PRN IV .PAIN 1-5; Start 12/23/18 at 11:30 Hydromorphone HCl (Dilaudid) 0.4 mg Q2H PRN IV .PAIN 6-10; Start 12/23/18 at 11:30 Diphenhydramine HCl (Benadryl) 25 mg Q4H PRN IV .PRURITUS; Start 12/23/18 at 11:30 Nalbuphine HCl (Nubain) 10 mg Q4H PRN IV .PRURITUS; Start 12/23/18 at 11:30 Ondansetron HCl (Zofran Inj) 4 mg Q6H PRN IV .NAUSEA/VOMITING; Start 12/23/18 at 11:30 Trimethobenzamide HCl (Tigan) 200 mg Q6H PRN IM .NAUSEA/VOMITING; Start 12/23/18 at 11:30 Naloxone HCl (Narcan) 0.2 mg Q2M PRN IV .RESP RATE; Start 12/23/18 at 11:30 Miscellaneous Information (* Miscellaneous Pharmacy Order) DURAMORPH: 2 MG EPIDU... GIVEN NEURAXIAL XX ; Start 12/23/18 at 11:30 Naloxone HCl (Narcan) 0.2 mg Q2M PRN IV .RESP RATE; Start 12/23/18 at 13:00 Ondansetron HCl (Zofran Inj) 4 mg Q6H PRN IV NAUSEA AND/OR VOMITING; Start 12/23/18 at 15:30 Morphine Sulfate (morphine) 2 MG/HR CONTINUOUS RATE 2... Q4PCA IV ; Start 12/23/18 at 15:30 Potassium Chloride/Dextrose/ Sod Cl 1,000 ml @ 100 mls/hr Q10H IV Last administered on 12/27/18at 03:30; Admin Dose 100 MLS/HR; Start 12/23/18 at 15:30 Clonidine (Catapres) 0.1 mg Q6H PRN PO ELEVATED BLOOD PRESSURE; Start 12/23/18 at 22:00 Fentanyl/ Ropivacaine 100 ml CONT EPIDURAL EPI Last administered on 12/26/18at 04:15; Admin Dose 100 ML; Start 12/24/18 at 11:30 Piperacillin Sod/ Tazobactam Sod 100 ml @ 200 mls/hr Q6 IVPB Last administered on 12/27/18at 12:40; Admin Dose 200 MLS/HR; Start 12/26/18 at 15:30 EL LYNN MD Dec 27, 2018 15:24
--- NOTE | 2018-12-27 18:30 | PN ---
DATE: 12/27/2018 Postop day #4 status post laparotomy, very low anterior resection of cancer of the rectum, colorectal anastomosis and placement of Bran-Noel drain in the pelvis and creation of complete diverting ileostomy. SUBJECTIVE: No specific complaint. OBJECTIVE: GENERAL: Awake, alert, oriented. VITAL SIGNS: Temperature maximum today 98.3, heart rate 99, respirations 20, blood pressure 134/90, saturation 94%. HEART: Regular. ABDOMEN: Soft. Bowel sounds are 2+/4+. The colostomy bag which had been applied in the operating room has leaked all over the abdominal wall so it was completely changed and a new one applied. Also, the dressing over the midline was changed and a new one applied. The wound looks clean. INPUT AND OUTPUT: Urine output 1900 mL. NG tube drainage in past 24 hours has been 700 mL. Bran-Noel drainage has 70 mL. LABORATORY DATA: WBC dropped to normal at 9800 with 78% segmented, hemoglobin 12.5, hematocrit 36.3. Chemistry: Sodium, potassium, BUN, creatinine are normal. Albumin 3.1. Globulin 3.30. PLAN: 1. Keep the NG tube in place. 2. Keep Hernandez catheter in place. 3. Let patient out of bed and walk around the floor. 4. Keep the Bran-Noel drain in place. 5. Continue IV fluids and antibiotics. Dictated By: EDELMIRA ALEJO MD PS/NTS Conf#: [id number] DID#: [id number] CC: PRITESH TANNER MD; CALDERON PEREZ MD; EL LYNN MD;*EndCC* MTDD
[2018-12-27 19:55] VITALS: BP 130/80; PULSE 88; RESP 18
[2018-12-28] MEDS: PIPER-TAZO 3.375 GM IV (PMX) 100 ML IVPB SCH ×4 (00:01→17:17)
[2018-12-28 02:00] VITALS: BP 121/73; PULSE 92; RESP 20
[2018-12-28] MEDS: D5W-0.45 NACL + KCL 20 MEQ 1,000 ML IV SCH ×2 (05:41→17:25)
[2018-12-28 07:52] VITALS: BP 120/76; PULSE 95; RESP 18
--- NOTE | 2018-12-28 13:09 | PN ---
DATE: 12/28/2018 Postop day #5. SUBJECTIVE: No specific complaint. OBJECTIVE: GENERAL: Awake, alert, oriented. VITAL SIGNS: Temperature maximum today 99.6, heart rate 92, respirations 20, blood pressure 121/73, saturation 95% room air. PHYSICAL EXAM: HEART: Regular. LUNGS: Clear. ABDOMEN: Not distended, is flat, soft, bowel sounds present. Ileostomy bag is in place. There is g reenish fluid in the ileostomy bag. Bran-Noel drain is in place. The content is brownish in col or. Smells very bad like stool. Hernandez in place. EXTREMITIES: Legs no calf tenderness. No pitting edema. NG tube has been removed. Bowel sounds ar e normal. ASSESSMENT AND PLAN: Postop day #5 status post rectosigmoid resection and colorectal anastomosis and placement of diverting end ileostomy and placement of Bran-Noel drain in the pelvis. PLAN: Continue current care. Continue IV. Continue antibiotics. Start patient on clear liquid tate p the Hernandez catheter, keep the Bran-Noel in place. We may discontinue Hernandez tomorrow. It depend s on how much the patient is ambulating. Dictated By: EDELMIRA ALEJO MD PS/NTS Conf#: [id number] DID#: [id number] CC: EL LYNN MD; CALDERON PEREZ MD; PRITESH TANNER MD;*EndCC*
--- NOTE | 2018-12-28 13:51 | PN ---
Date/Time of Note Date/Time of Note DATE: 12/28/18 TIME: 13:50 Assessment/Plan VTE Prophylaxis Risk score (from Ns)>0 risk: 3 SCD applied (from Ns): Yes Pharmacological prophylaxis: NA/contraindicated Pharm contraindication: surgical contra Lines/Catheters IV Catheter Type (from [facility]): Peripheral IV Urinary Cath still in place: Yes Reason Cath still needed: other (indicate) Assessment/Plan Hospital Course SUBJECTIVE: No acute overnight episodes. OBJECTIVE: Vital signs-see below PHYSICAL EXAM: Constitutional: Well-developed, well-nourished, not in acute distress. HEENT: Head atraumatic and normocephalic. Eyes: Extraocular muscles intact. Anicteric sclerae. Pupils equal bilaterally, reactive to light. NECK: Supple without lymph node. CHEST: Clear and good breath sounds equally. No wheezing. No rhonchi. HEART: S1, S2. Regular rate and rhythm. ABDOMEN: Ileostomy bag, draining liquid stool. PRASHANT in place, draining in minimal to moderate. Soft, nontender. Dressing c/d/I. EXTREMITIES: Full range of motion in all the extremities. No cyanosis, clubbing or edema. NEUROLOGIC: Alert and oriented x3. No focal deficit. No sensory deficit. PSYCHOSOCIAL: In a good mood. No signs of depression. INTEGUMENTARY: Moist mucous membranes. Good skin turgor, intact. ASSESSMENT AND PLAN: 58-year-old male with history of rectal cancer, status post chemotherapy/radiation, with residual tumor, admitted for low anterior resection of residual rectal tumor. 1. Residual rectal tumor, status post rectosigmoid resection with colorectal anastomosis with placement of diverting end ileostomy/placement of PRASHANT drain- 12/23/2018. -Postoperative management including antibiotic/drain management/diet per surgery. -Encourage ambulation, incentive spirometry. 2. Anemia of chronic disease. -Stable H&H. Continue to monitor. 3. History of rectal cancer, status post chemotherapy/radiation. DVT prophylaxis: Surgical contraindication. SCDs only. PUD prophylaxis: Start Pepcid. Diet: Per surgery Disposition: Continue current management. Follow-up surgical recommendations. Patient was seen in collaboration with Dr. Almaraz. Result Diagram: 12/28/18 6742 12/27/18 0850 Results 24hrs Laboratory Tests Test 12/27/18 15:40 12/28/18 04:33 Sodium Level 136 Potassium Level 3.9 Chloride Level 106 Carbon Dioxide Level 24 Anion Gap 6 Blood Urea Nitrogen 9 Creatinine 0.66 Est Glomerular Filtrat Rate mL/min > 60 Glucose Level 103 Calcium Level 8.8 White Blood Count 7.6 # Red Blood Count 3.94 L Hemoglobin 12.0 L Hematocrit 34.6 L Mean Corpuscular Volume 87.8 Mean Corpuscular Hemoglobin 30.5 Mean Corpuscular Hemoglobin Concent 34.7 Red Cell Distribution Width 14.1 Platelet Count 238 Mean Platelet Volume 10.3 Immature Granulocytes % 0.900 H Neutrophils % 72.8 Lymphocytes % 12.0 L Monocytes % 9.5 Eosinophils % 4.4 Basophils % 0.4 Nucleated Red Blood Cells % 0.0 Immature Granulocytes # 0.070 H Neutrophils # 5.5 Lymphocytes # 0.9 Monocytes # 0.7 Eosinophils # 0.3 Basophils # 0.0 Nucleated Red Blood Cells # 0.0 Magnesium Level 2.6 H Exam/Review of Systems Exam Vitals Vital Signs Date Temp Pulse Resp B/P (MAP) Pulse Ox O2 O2 Flow FiO2 Time Delivery Rate 12/28/18 98.7 95 18 120/76 97 07:52 (91) 12/28/18 Room Air 02:00 12/26/18 2.0 08:00 Intake and Output 12/27/18 12/27/18 12/28/18 1515:00 23:00 07:00 IntakeIntake Total 100 ml 1400 ml 1300 ml OutputOutput Total 355 ml 1110 ml 1220 ml BalanceBalance -255 ml 290 ml 80 ml Results Results 24hrs Laboratory Tests Test 12/27/18 15:40 12/28/18 04:33 Sodium Level 136 Potassium Level 3.9 Chloride Level 106 Carbon Dioxide Level 24 Anion Gap 6 Blood Urea Nitrogen 9 Creatinine 0.66 Est Glomerular Filtrat Rate mL/min > 60 Glucose Level 103 Calcium Level 8.8 White Blood Count 7.6 # Red Blood Count 3.94 L Hemoglobin 12.0 L Hematocrit 34.6 L Mean Corpuscular Volume 87.8 Mean Corpuscular Hemoglobin 30.5 Mean Corpuscular Hemoglobin Concent 34.7 Red Cell Distribution Width 14.1 Platelet Count 238 Mean Platelet Volume 10.3 Immature Granulocytes % 0.900 H Neutrophils % 72.8 Lymphocytes % 12.0 L Monocytes % 9.5 Eosinophils % 4.4 Basophils % 0.4 Nucleated Red Blood Cells % 0.0 Immature Granulocytes # 0.070 H Neutrophils # 5.5 Lymphocytes # 0.9 Monocytes # 0.7 Eosinophils # 0.3 Basophils # 0.0 Nucleated Red Blood Cells # 0.0 Magnesium Level 2.6 H Medications Medication Current Medications Hydromorphone HCl (Dilaudid) 0.2 mg Q2H PRN IV .PAIN 1-5; Start 12/23/18 at 11:30 Hydromorphone HCl (Dilaudid) 0.4 mg Q2H PRN IV .PAIN 6-10; Start 12/23/18 at 11:30 Diphenhydramine HCl (Benadryl) 25 mg Q4H PRN IV .PRURITUS; Start 12/23/18 at 11:30 Nalbuphine HCl (Nubain) 10 mg Q4H PRN IV .PRURITUS; Start 12/23/18 at 11:30 Ondansetron HCl (Zofran Inj) 4 mg Q6H PRN IV .NAUSEA/VOMITING; Start 12/23/18 at 11:30 Trimethobenzamide HCl (Tigan) 200 mg Q6H PRN IM .NAUSEA/VOMITING; Start 12/23/18 at 11:30 Naloxone HCl (Narcan) 0.2 mg Q2M PRN IV .RESP RATE; Start 12/23/18 at 11:30 Miscellaneous Information (* Miscellaneous Pharmacy Order) DURAMORPH: 2 MG EPIDU... GIVEN NEURAXIAL XX ; Start 12/23/18 at 11:30 Naloxone HCl (Narcan) 0.2 mg Q2M PRN IV .RESP RATE; Start 12/23/18 at 13:00 Ondansetron HCl (Zofran Inj) 4 mg Q6H PRN IV NAUSEA AND/OR VOMITING; Start 12/23/18 at 15:30 Morphine Sulfate (morphine) 2 MG/HR CONTINUOUS RATE 2... Q4PCA IV ; Start 12/23/18 at 15:30 Potassium Chloride/Dextrose/ Sod Cl 1,000 ml @ 100 mls/hr Q10H IV Last administered on 12/28/18at 05:41; Admin Dose 100 MLS/HR; Start 12/23/18 at 15:30 Clonidine (Catapres) 0.1 mg Q6H PRN PO ELEVATED BLOOD PRESSURE; Start 12/23/18 at 22:00 Fentanyl/ Ropivacaine 100 ml CONT EPIDURAL EPI Last administered on 12/26/18at 04:15; Admin Dose 100 ML; Start 12/24/18 at 11:30 Piperacillin Sod/ Tazobactam Sod 100 ml @ 200 mls/hr Q6 IVPB Last administered on 12/28/18at 12:02; Admin Dose 200 MLS/HR; Start 12/26/18 at 15:30 TASNEEM THOMAS V. LAST REPAIRER Dec 28, 2018 13:51
[2018-12-28 15:36] VITALS: BP 114/74; PULSE 99; RESP 18
[2018-12-28 19:45] VITALS: BP 132/77; PULSE 94; RESP 20
[2018-12-28] MEDS: FAMOTIDINE 20 MG TAB PO SCH (20:59)
[2018-12-29] MEDS: PIPER-TAZO 3.375 GM IV (PMX) 100 ML IVPB SCH ×4 (00:30→17:15)
[2018-12-29 02:30] VITALS: BP 119/77; PULSE 93; RESP 20
[2018-12-29] MEDS: D5W-0.45 NACL + KCL 20 MEQ 1,000 ML IV SCH (03:27)
[2018-12-29 08:00] VITALS: BP 131/80; PULSE 89; RESP 18
--- NOTE | 2018-12-29 11:37 | PN ---
Date/Time of Note Date/Time of Note DATE: 12/29/18 TIME: 11:36 Assessment/Plan VTE Prophylaxis Risk score (from Ns)>0 risk: 3 SCD applied (from Ns): Yes Pharmacological prophylaxis: NA/contraindicated Pharm contraindication: surgical contra Lines/Catheters [facility] Type (from [facility]): Peripheral IV Urinary Cath still in place: Yes Reason Cath still needed: other (indicate) Assessment/Plan Hospital Course SUBJECTIVE: No acute overnight episodes. OBJECTIVE: Vital signs-see below PHYSICAL EXAM: Constitutional: Well-developed, well-nourished, not in acute distress. HEENT: Head atraumatic and normocephalic. Eyes: Extraocular muscles intact. Anicteric sclerae. Pupils equal bilaterally, reactive to light. NECK: Supple without lymph node. CHEST: Clear and good breath sounds equally. No wheezing. No rhonchi. HEART: S1, S2. Regular rate and rhythm. ABDOMEN: Ileostomy bag, draining liquid stool. PRASHANT in place, draining in minimal to moderate. Soft, nontender. Dressing c/d/I. EXTREMITIES: Full range of motion in all the extremities. No cyanosis, clubbing or edema. NEUROLOGIC: Alert and oriented x3. No focal deficit. No sensory deficit. PSYCHOSOCIAL: In a good mood. No signs of depression. INTEGUMENTARY: Moist mucous membranes. Good skin turgor, intact. ASSESSMENT AND PLAN: 58-year-old male with history of rectal cancer, status post chemotherapy/radiation, with residual tumor, admitted for low anterior resection of residual rectal tumor. 1. Residual rectal tumor, status post rectosigmoid resection with colorectal anastomosis with placement of diverting end ileostomy/placement of PRASHANT drain- 12/23/2018. -Postoperative management including antibiotic/drain management/diet per surgery. -Encourage ambulation, incentive spirometry. 2. Anemia of chronic disease. -Stable H&H. Continue to monitor. 3. History of rectal cancer, status post chemotherapy/radiation. DVT prophylaxis: Surgical contraindication. SCDs only. PUD prophylaxis: Start Pepcid. Diet: Per surgery Disposition: Continue current management. Follow-up surgical recommendations. Patient was seen in collaboration with Dr. Almaraz. Result Diagram: 12/29/18 0448 12/29/18 0448 Results 24hrs Laboratory Tests Test 12/29/18 04:48 White Blood Count 8.3 Red Blood Count 3.95 L Hemoglobin 12.0 L Hematocrit 35.1 L Mean Corpuscular Volume 88.9 Mean Corpuscular Hemoglobin 30.4 Mean Corpuscular Hemoglobin Concent 34.2 Red Cell Distribution Width 13.5 Platelet Count 246 Mean Platelet Volume 10.0 Immature Granulocytes % 1.200 H Neutrophils % 75.4 Lymphocytes % 10.7 L Monocytes % 8.8 Eosinophils % 3.5 Basophils % 0.4 Nucleated Red Blood Cells % 0.0 Immature Granulocytes # 0.100 H Neutrophils # 6.2 Lymphocytes # 0.9 Monocytes # 0.7 Eosinophils # 0.3 Basophils # 0.0 Nucleated Red Blood Cells # 0.0 Sodium Level 137 Potassium Level 4.0 Chloride Level 108 Carbon Dioxide Level 21 Anion Gap 8 Blood Urea Nitrogen 8 Creatinine 0.75 Est Glomerular Filtrat Rate mL/min > 60 Glucose Level 108 Calcium Level 8.6 Exam/Review of Systems Exam Vitals Vital Signs Date Temp Pulse Resp B/P (MAP) Pulse Ox O2 O2 Flow FiO2 Time Delivery Rate 12/29/18 99.0 89 18 131/80 97 08:00 (97) 12/29/18 Room Air 02:30 12/26/18 2.0 08:00 Intake and Output 12/28/18 12/28/18 12/29/18 1515:00 23:00 07:00 IntakeIntake Total 100 ml 1860 ml 1850 ml OutputOutput Total 200 ml 1370 ml 930 ml BalanceBalance -100 ml 490 ml 920 ml Results Results 24hrs Laboratory Tests Test 12/29/18 04:48 White Blood Count 8.3 Red Blood Count 3.95 L Hemoglobin 12.0 L Hematocrit 35.1 L Mean Corpuscular Volume 88.9 Mean Corpuscular Hemoglobin 30.4 Mean Corpuscular Hemoglobin Concent 34.2 Red Cell Distribution Width 13.5 Platelet Count 246 Mean Platelet Volume 10.0 Immature Granulocytes % 1.200 H Neutrophils % 75.4 Lymphocytes % 10.7 L Monocytes % 8.8 Eosinophils % 3.5 Basophils % 0.4 Nucleated Red Blood Cells % 0.0 Immature Granulocytes # 0.100 H Neutrophils # 6.2 Lymphocytes # 0.9 Monocytes # 0.7 Eosinophils # 0.3 Basophils # 0.0 Nucleated Red Blood Cells # 0.0 Sodium Level 137 Potassium Level 4.0 Chloride Level 108 Carbon Dioxide Level 21 Anion Gap 8 Blood Urea Nitrogen 8 Creatinine 0.75 Est Glomerular Filtrat Rate mL/min > 60 Glucose Level 108 Calcium Level 8.6 Medications Medication Current Medications Hydromorphone HCl (Dilaudid) 0.2 mg Q2H PRN IV .PAIN 1-5; Start 12/23/18 at 11:30 Hydromorphone HCl (Dilaudid) 0.4 mg Q2H PRN IV .PAIN 6-10; Start 12/23/18 at 11:30 Diphenhydramine HCl (Benadryl) 25 mg Q4H PRN IV .PRURITUS; Start 12/23/18 at 11:30 Nalbuphine HCl (Nubain) 10 mg Q4H PRN IV .PRURITUS; Start 12/23/18 at 11:30 Ondansetron HCl (Zofran Inj) 4 mg Q6H PRN IV .NAUSEA/VOMITING; Start 12/23/18 at 11:30 Trimethobenzamide HCl (Tigan) 200 mg Q6H PRN IM .NAUSEA/VOMITING; Start 12/23/18 at 11:30 Naloxone HCl (Narcan) 0.2 mg Q2M PRN IV .RESP RATE; Start 12/23/18 at 11:30 Miscellaneous Information (* Miscellaneous Pharmacy Order) DURAMORPH: 2 MG EPIDU... GIVEN NEURAXIAL XX ; Start 12/23/18 at 11:30 Naloxone HCl (Narcan) 0.2 mg Q2M PRN IV .RESP RATE; Start 12/23/18 at 13:00 Ondansetron HCl (Zofran Inj) 4 mg Q6H PRN IV NAUSEA AND/OR VOMITING; Start 12/23/18 at 15:30 Morphine Sulfate (morphine) 2 MG/HR CONTINUOUS RATE 2... Q4PCA IV ; Start 12/23/18 at 15:30 Potassium Chloride/Dextrose/ Sod Cl 1,000 ml @ 100 mls/hr Q10H IV Last adm inistered on 12/29/18at 03:27; Admin Dose 100 MLS/HR; Start 12/23/18 at 15:30 Clonidine (Catapres) 0.1 mg Q6H PRN PO ELEVATED BLOOD PRESSURE; Start 12/23/18 at 22:00 Fentanyl/ Ropivacaine 100 ml CONT EPIDURAL EPI Last administered on 12/26/18at 04:15; Admin Dose 100 ML; Start 12/24/18 at 11:30 Piperacillin Sod/ Tazobactam Sod 100 ml @ 200 mls/hr Q6 IVPB Last administered on 12/29/18at 11:17; Admin Dose 200 MLS/HR; Start 12/26/18 at 15:30 Famotidine (Pepcid) 20 mg HS PO Last administered on 12/28/18at 20:59; Admin Dose 20 MG; Start 12/28/18 at 21:00 TASNEEM THOMAS NP Dec 29, 2018 11:37
[2018-12-29 14:00] VITALS: BP 116/69; PULSE 80; RESP 18
--- NOTE | 2018-12-29 14:41 | PN ---
DATE: 12/29/2018 Postop day #6 status post rectosigmoid resection for cancer of the rectum and colorectal anastomosis and placement of diverting end ileostomy postop day #6 and placement of Bran-Noel drain in the vicinity of the anastomosis. SUBJECTIVE: No specific complaint. No nausea, no vomiting. OBJECTIVE: GENERAL: Awake and alert. VITAL SIGNS: Temperature 99 maximum, heart rate 89, respiration 18, blood pressure 131/80, saturation 97% on room air. HEART: Regular. LUNGS: Clear. ABDOMEN: Soft, not distended, is flat. Ileostomy: Greenish fluid. GENITOURINARY: Hernandez catheter is in place. Bran-Noel drain is in place. EXTREMITIES: Legs no calf tenderness. No pitting edema. LABORATORY DATA: WBC 8300 with 75% segmented, which is normal shift, hemoglobin 12, hematocrit 35. Chemistry: Sodium, potassium, BUN, creatinine within normal limits. INPUT AND OUTPUT: Urine output 1580 mL in past 24 hours. Ileostomy drainage in past 24 hours was 550 mL. Bran-Noel drain is 50 mL which is kind of fluid that looks like purulent material. It should be mentioned that we know from the investigation at the end of the procedure that there was some amount of leakage at the anastomosis where air was leaking out and that is why the surgeons put Bran-Noel drain and placed diverting end ileostomy to make sure the healing will take place. PLAN: 1. Send urine culture. 2. Discontinue the Hernandez catheter. 3. Advance diet to full liquid. Dictated By: EDELMIRA ALEJO MD PS/NTS Conf#: [id number] DID#: [id number] CC: PRITESH TANNER MD; CALDERON PEREZ MD; EL LYNN MD;*EndCC* MTDD
[2018-12-29 20:39] VITALS: BP 121/78; PULSE 101; RESP 18
[2018-12-29] MEDS: FAMOTIDINE 20 MG TAB PO SCH (21:49)
[2018-12-30] MEDS: PIPER-TAZO 3.375 GM IV (PMX) 100 ML IVPB SCH ×4 (00:15→17:25)
[2018-12-30 02:02] VITALS: BP 125/81; PULSE 92; RESP 18
[2018-12-30 08:22] VITALS: BP 129/84; PULSE 96; RESP 18
--- NOTE | 2018-12-30 12:02 | PN ---
Date/Time of Note Date/Time of Note DATE: 12/30/18 TIME: 11:59 Assessment/Plan VTE Prophylaxis [place] [facility] [place] risk: 9 SCD applied (from [facility] [place] Yes Pharmacological prophylaxis: NA/contraindicated Pharm contraindication: surgical contra Lines/Catheters IV Catheter Type (from [facility]): Saline Lock Urinary Cath still in place: No Assessment/Plan Hospital Course SUBJECTIVE: mendoza dcd and pt has voided wo difficulty. Tolerating full liquid diet but OBJECTIVE: Vital signs-see below PHYSICAL EXAM: Constitutional: Well-developed, well-nourished, not in acute distress. HEENT: Head atraumatic and normocephalic. Eyes: Extraocular muscles intact. Anicteric sclerae. Pupils equal bilaterally, reactive to light. NECK: Supple without lymph node. CHEST: Clear and good breath sounds equally. No wheezing. No rhonchi. HEART: S1, S2. Regular rate and rhythm. ABDOMEN: Ileostomy bag, draining liquid stool. PRASHANT in place, draining in minimal to moderate. Soft, nontender. Dressing c/d/I. EXTREMITIES: Full range of motion in all the extremities. No cyanosis, clubbing or edema. NEUROLOGIC: Alert and oriented x3. No focal deficit. No sensory deficit. PSYCHOSOCIAL: In a good mood. No signs of depression. INTEGUMENTARY: Moist mucous membranes. Good skin turgor, intact. ASSESSMENT AND PLAN: 58-year-old male with history of rectal cancer, status post chemotherapy/radiation, with residual tumor, admitted for low anterior resection of residual rectal tumor. 1. Residual rectal tumor, status post rectosigmoid resection with colorectal anastomosis with placement of diverting end ileostomy/placement of PRASHANT drain- 12/23/2018. -Postoperative management including antibiotic/drain management/diet per surgery. -Encourage ambulation, incentive spirometry. 2. Anemia of chronic disease. -Stable H&H. Continue to monitor. 3. History of rectal cancer, status post chemotherapy/radiation. DVT prophylaxis: Surgical contraindication. SCDs only. PUD prophylaxis: Start Pepcid. Diet: Per surgery Disposition: Overall, patient remained stable. His Mendoza catheter was removed last night and he is voiding without any difficulties. He is also tolerating a full liquid diet. Continue PT evaluation. Case management to arrange home health for ileostomy wound care. Patient also waiting for ileostomy supplies. Disposition when surgically cleared. Patient was seen in collaboration with Dr. Gustafson Result Diagram: 12/30/1842912/30/18 0430 Results 24hrs Laboratory Tests Test 12/30/18 04:30 12/30/18 07:06 White Blood Count 9.5 Red Blood Count 3.92 L Hemoglobin 12.1 L Hematocrit 34.8 L Mean Corpuscular Volume 88.8 Mean Corpuscular Hemoglobin 30.9 Mean Corpuscular Hemoglobin Concent 34.8 Red Cell Distribution Width 14.0 Platelet Count 295 Mean Platelet Volume 10.2 Immature Granulocytes % 1.200 H Neutrophils % 72.1 Lymphocytes % 14.0 L Monocytes % 9.1 Eosinophils % 3.2 Basophils % 0.4 Nucleated Red Blood Cells % 0.0 Immature Granulocytes # 0.110 H Neutrophils # 6.8 Lymphocytes # 1.3 Monocytes # 0.9 Eosinophils # 0.3 Basophils # 0.0 Nucleated Red Blood Cells # 0.0 Sodium Level 138 Potassium Level 3.9 Chloride Level 107 Carbon Dioxide Level 23 Anion Gap 8 Blood Urea Nitrogen 9 Creatinine 0.84 Est Glomerular Filtrat Rate mL/min > 60 Glucose Level 86 Calcium Level 8.6 Lab Scanned Report REFERENCE LAB Exam/Review of Systems Exam Vitals Vital Signs Date Temp Pulse Resp B/P (MAP) Pulse Ox O2 O2 Flow FiO2 Time Delivery Rate 12/30/18 98.3 96 18 129/84 99 Room Air 08:22 (99) CPAP 12/26/18 2.0 08:00 Intake and Output 12/29/18 12/29/18 12/30/18 1515:00 23:00 07:00 IntakeIntake Total 1000 ml 550 ml 100 ml OutputOutput Total 450 ml 1620 ml 470 ml BalanceBalance 550 ml -1070 ml -370 ml Results Results 24hrs Laboratory Tests Test 12/30/18 04:30 12/30/18 07:06 White Blood Count 9.5 Red Blood Count 3.92 L Hemoglobin 12.1 L Hematocrit 34.8 L Mean Corpuscular Volume 88.8 Mean Corpuscular Hemoglobin 30.9 Mean Corpuscular Hemoglobin Concent 34.8 Red Cell Distribution Width 14.0 Platelet Count 295 Mean Platelet Volume 10.2 Immature Granulocytes % 1.200 H Neutrophils % 72.1 Lymphocytes % 14.0 L Monocytes % 9.1 Eosinophils % 3.2 Basophils % 0.4 Nucleated Red Blood Cells % 0.0 Immature Granulocytes # 0.110 H Neutrophils # 6.8 Lymphocytes # 1.3 Monocytes # 0.9 Eosinophils # 0.3 Basophils # 0.0 Nucleated Red Blood Cells # 0.0 Sodium Level 138 Potassium Level 3.9 Chloride Level 107 Carbon Dioxide Level 23 Anion Gap 8 Blood Urea Nitrogen 9 Creatinine 0.84 Est Glomerular Filtrat Rate mL/min > 60 Glucose Level 86 Calcium Level 8.6 Lab Scanned Report REFERENCE LAB Medications Medication Current Medications Hydromorphone HCl (Dilaudid) 0.2 mg Q2H PRN IV .PAIN 1-5; Start 12/23/18 at 11:30 Hydromorphone HCl (Dilaudid) 0.4 mg Q2H PRN IV .PAIN 6-10; Start 12/23/18 at 11:30 Diphenhydramine HCl (Benadryl) 25 mg Q4H PRN IV .PRURITUS; Start 12/23/18 at 11:30 Nalbuphine HCl (Nubain) 10 mg Q4H PRN IV .PRURITUS; Start 12/23/18 at 11:30 Ondansetron HCl (Zofran Inj) 4 mg Q6H PRN IV .NAUSEA/VOMITING; Start 12/23/18 at 11:30 Trimethobenzamide HCl (Tigan) 200 mg Q6H PRN IM .NAUSEA/VOMITING; Start 12/23/18 at 11:30 Naloxone HCl (Narcan) 0.2 mg Q2M PRN IV .RESP RATE; Start 12/23/18 at 11:30 Miscellaneous Information (* Miscellaneous Pharmacy Order) DURAMORPH: 2 MG EPIDU... GIVEN NEURAXIAL XX ; Start 12/23/18 at 11:30 Naloxone HCl (Narcan) 0.2 mg Q2M PRN IV .RESP RATE; Start 12/23/18 at 13:00 Ondansetron HCl (Zofran Inj) 4 mg Q6H PRN IV NAUSEA AND/OR VOMITING; Start 12/23/18 at 15:30 Morphine Sulfate (morphine) 2 MG/HR CONTINUOUS RATE 2... Q4PCA IV ; Start 12/23/18 at 15:30 Clonidine (Catapres) 0.1 mg Q6H PRN PO ELEVATED BLOOD PRESSURE; Start 12/23/18 at 22:00 Fentanyl/ Ropivacaine 100 ml CONT EPIDURAL EPI Last administered on 12/26/18at 04:15; Admin Dose 100 ML; Start 12/24/18 at 11:30 Piperacillin Sod/ Tazobactam Sod 100 ml @ 200 mls/hr Q6 IVPB Last administered on 12/30/18at 11:46; Admin Dose 200 MLS/HR; Start 12/26/18 at 15:30 Famotidine (Pepcid) 20 mg HS PO Last administered on 12/29/18at 21:49; Admin Dose 20 MG; Start 12/28/18 at 21:00 TASNEEM THOMAS NP Dec 30, 2018 12:02
[2018-12-30 14:56] VITALS: BP 122/83; PULSE 92; RESP 18
--- NOTE | 2018-12-30 19:32 | PN ---
DATE: 12/30/2018 Postop day #7 status post laparotomy, low anterior resection and colorectal anastomosis and placement of diverting end ileostomy and placement of Bran-Noel drain. SUBJECTIVE: No complaint. OBJECTIVE: GENERAL: Awake, alert, oriented. The patient has tolerated full liquid diet and we are going to adv ance him to regular diet. Ileostomy is functioning. VITAL SIGNS: Stable. Maximum temperature today 99.2, heart rate 96, respiration 18, blood pressure 129/87, saturation 99% on room air. HEART: Regular. LUNGS: Clear. ABDOMEN: Soft, not distended, no tenderness, no rigidity. Ileostomy is functioning, greenish liquid in the bag. LABORATORY DATA: WBC 9500 with 72% segmented, normal differential, hemoglobin 12.1, hematocrit 34.8. Chemistry: Sodium, potassium, BUN, creatinine within normal limits. PLAN: Advance diet and observe. Bran-Noel drain still is draining purulent looking material. A mount of discharge in past 24 hours has been 40 mL. The patient's Hernandez catheter was discontinued ye sterday and he is urinating without complication. We will continue to follow and continue antibiotic . Dictated By: EDELMIRA ALEJO MD PS/NTS Conf#: [id number] DID#: [id number] CC: PRITESH TANNER MD; CALDERON PEREZ MD; EL LYNN MD;*EndCC*
[2018-12-30 21:19] VITALS: BP 129/75; PULSE 94; RESP 18
[2018-12-30] MEDS: FAMOTIDINE 20 MG TAB PO SCH (22:19)
[2018-12-31] MEDS: PIPER-TAZO 3.375 GM IV (PMX) 100 ML IVPB SCH ×3 (00:32→11:45)
[2018-12-31 02:12] VITALS: BP 114/74; PULSE 88; RESP 18
[2018-12-31 08:18] VITALS: BP 121/78; PULSE 95; RESP 18
--- NOTE | 2018-12-31 10:29 | PN ---
Date/Time of Note Date/Time of Note DATE: 12/31/18 TIME: 10:28 Assessment/Plan VTE Prophylaxis Risk score (from Ns)>0 risk: 2 SCD applied (from [facility]): Yes Pharmacological prophylaxis: NA/contraindicated Pharm contraindication: surgical contra Lines/Catheters [facility] Saline Lock Urinary Cath still in place: No Assessment/Plan Hospital Course SUBJECTIVE: No acute distress. Fully functional ileostomy bag. PRASHANT drain minimal. OBJECTIVE: Vital signs-see below PHYSICAL EXAM: Constitutional: Well-developed, well-nourished, not in acute distress. HEENT: Head atraumatic and normocephalic. Eyes: Extraocular muscles intact. Anicteric sclerae. Pupils equal bilaterally, reactive to light. NECK: Supple without lymph node. CHEST: Clear and good breath sounds equally. No wheezing. No rhonchi. HEART: S1, S2. Regular rate and rhythm. ABDOMEN: Ileostomy bag, draining liquid stool. PRASHANT in place, draining in minimal to moderate. Soft, nontender. Dressing c/d/I. EXTREMITIES: Full range of motion in all the extremities. No cyanosis, clubbing or edema. NEUROLOGIC: Alert and oriented x3. No focal deficit. No sensory deficit. PSYCHOSOCIAL: In a good mood. No signs of depression. INTEGUMENTARY: Moist mucous membranes. Good skin turgor, intact. ASSESSMENT AND PLAN: 58-year-old male with history of rectal cancer, status post chemotherapy/radiation, with residual tumor, admitted for low anterior resection of residual rectal tumor. 1. Residual rectal tumor, status post rectosigmoid resection with colorectal anastomosis with placement of diverting end ileostomy/placement of PRASHANT drain- 12/23/2018. -Postoperative management including antibiotic/drain management/diet per surgery. -Encourage ambulation, incentive spirometry. 2. Anemia of chronic disease. -Stable H&H. Continue to monitor. 3. History of rectal cancer, status post chemotherapy/radiation. DVT prophylaxis: Surgical contraindication. SCDs only. PUD prophylaxis: Start Pepcid. Diet: Per surgery Disposition: Remains medically stable. Home health arrangement in process for ileostomy supplies. Disposition when surgically cleared. Patient was seen in collaboration with Dr. Gustafson Result Diagram: 12/30/18 04312/30/18 043 Exam/Review of Systems Exam Vitals Vital Signs Date Temp Pulse Resp B/P (MAP) Pulse Ox O2 O2 Flow FiO2 Time Delivery Rate 12/31/18 98.6 95 18 121/78 99 Room Air 08:18 (92) Intake and Output 12/30/18 12/30/18 12/31/18 1515:00 23:00 07:00 IntakeIntake Total 100 ml 1000 ml 200 ml OutputOutput Total 690 ml 820 ml 205 ml BalanceBalance -590 ml 180 ml -5 ml Medications Medication Current Medications Hydromorphone HCl (Dilaudid) 0.2 mg Q2H PRN IV .PAIN 1-5; Start 12/23/18 at 11:30 Hydromorphone HCl (Dilaudid) 0.4 mg Q2H PRN IV .PAIN 6-10; Start 12/23/18 at 11:30 Diphenhydramine HCl (Benadryl) 25 mg Q4H PRN IV .PRURITUS; Start 12/23/18 at 11:30 Nalbuphine HCl (Nubain) 10 mg Q4H PRN IV .PRURITUS; Start 12/23/18 at 11:30 Ondansetron HCl (Zofran Inj) 4 mg Q6H PRN IV .NAUSEA/VOMITING; Start 12/23/18 at 11:30 Trimethobenzamide HCl (Tigan) 200 mg Q6H PRN IM .NAUSEA/VOMITING; Start 12/23/18 at 11:30 Naloxone HCl (Narcan) 0.2 mg Q2M PRN IV .RESP RATE; Start 12/23/18 at 11:30 Miscellaneous Information (* Miscellaneous Pharmacy Order) DURAMORPH: 2 MG EPIDU... GIVEN NEURAXIAL XX ; Start 12/23/18 at 11:30 Naloxone HCl (Narcan) 0.2 mg Q2M PRN IV .RESP RATE; Start 12/23/18 at 13:00 Ondansetron HCl (Zofran Inj) 4 mg Q6H PRN IV NAUSEA AND/OR VOMITING; Start 12/23/18 at 15:30 Morphine Sulfate (morphine) 2 MG/HR CONTINUOUS RATE 2... Q4PCA IV ; Start 12/23/18 at 15:30 Clonidine (Catapres) 0.1 mg Q6H PRN PO ELEVATED BLOOD PRESSURE; Start 12/23/18 at 22:00 Fentanyl/ Ropivacaine 100 ml CONT EPIDURAL EPI Last administered on 12/26/18at 04:15; Admin Dose 100 ML; Start 12/24/18 at 11:30 Piperacillin Sod/ Tazobactam Sod 100 ml @ 200 mls/hr Q6 IVPB Last administered on 12/31/18at 05:49; Admin Dose 200 MLS/HR; Start 12/26/18 at 15:30 Famotidine (Pepcid) 20 mg HS PO Last administered on 12/30/18at 22:19; Admin Dose 20 MG; Start 12/28/18 at 21:00 TASNEEM THOMAS NP Dec 31, 2018 10:29
--- NOTE | 2018-12-31 14:19 | PDOCDIS ---
Discharge Instructions CONDITION [id number] Patient Condition: [id number] Stable HOME CARE INSTRUCTIONS: [id number] Diet Instructions: [id number] Regular ACTIVITY: [id number] Activity Restrictions: [id number] Slowly Increase Activity Rest between Activity Avoid heavy lifting Do not Drive Do not operate Machinery Do not operate Power Tool Avoid Heavy Housework [id number] Bathing Restrictions: [id number] Shower FOLLOW UP/APPOINTMENTS Follow-up Plan PER 'S INSTRUCTIONS SEE PRIMARY DOCTOR AND AFTER DISCHARGE TASNEEM THOMAS NP Dec 31, 2018 14:19
--- NOTE | 2018-12-31 14:30 | DS ---
Date/Time of Note Date/Time of Note DATE: 12/31/18 TIME: 14:29 Discharge Summary Admission/Discharge Info Admit Date/Time Dec 23, 2018 at 08:20 Discharge Date/Time Discharge Diagnosis 1. Residual rectal tumor, status post rectosigmoid resection with colorectal anastomosis with placement of diverting end ileostomy/placement of PRASHANT drain- 12/23/2018. 2. Anemia of chronic disease. 3. History of rectal cancer, status post chemotherapy/radiation. Patient Condition: Stable Consults ,surgery Procedures rectosigmoid resection with colorectal anastomosis with placement of diverting end ileostomy/placement of PRASHANT drain-12/23/2018. Hospital Course 58-year-old male with history of rectal cancer, status post chemotherapy/radiation, with residual tumor, admitted for low anterior resection of residual rectal tumor. Patient underwent rectosigmoid resection with colorectal anastomosis with placement of diverting end ileostomy/placement of PRASHANT drain- 12/23/2018.Postoperative management as instructed by . Hospital postoperative course was uneventful. Patient was given antimicrobials. On 12/31/2018, as per surgery instructions, patient was discharged with home health for ileostomy care. Patient was also given cipro/flagyl by Case discussed with Dr. Gustafson. Home Meds Reported Medications Peg 3350/Na Sulf,Bicarb,Cl/KCl (Golytely Packet) 1 Each Powd.pack, 1 GAL PO ONCE 12/23/18 Follow-up Plan PER 'S INSTRUCTIONS SEE PRIMARY DOCTOR AND AFTER DISCHARGE Primary Care Provider Not On Staff Doctor TASNEEM THOMAS NP Dec 31, 2018 14:30
--- NOTE | 2018-12-31 18:04 | PN ---
DATE: 12/31/2018 SUBJECTIVE: Postop day #8 status post laparotomy, low anterior resection of the cancer of the rectum and colorectal anastomosis and placement of diverting end ileostomy for protection of the anastomosi s and placement of a Bran-Noel drain in the pelvis in the vicinity of stenosis. OBJECTIVE: GENERAL: No complaint. No nausea, no vomiting, no abdominal pain. He was tolerating diet. Awake, alert, oriented x3. VITAL SIGNS: Temperature maximum 98.6, heart rate 88, respirations 18, blood pressure 121/78, satura tion 96% on room air. HEAD AND NECK: Normal. LUNGS: Clear. HEART: Regular. ABDOMEN: Flat, soft. Midline incision wound is clean. Ileostomy bag contains brownish liquid mater ial. EXTREMITIES: Lower extremity: No pitting edema. No calf tenderness. INPUT AND OUTPUT: Bran-Noel drain contains greenish yellow purulent liquid and has drained in th e past 24 hours about 40 mL of this fluid. IMPRESSION: It appears that the patient has leakage at the anastomotic site down into pelvis. The p atient is on Zosyn antibiotics. PLAN: We are going to send a culture from the Bran-Noel drain since the patient is tolerating di et. No fever, no leukocytosis. Therefore, the patient from surgical point of view can be discharged if it is okay with medical service. I wrote a prescription for ciprofloxacin 500 mg b.i.d. for 10 d ays and Flagyl 500 mg p.o. q.8 hours for 10 days. The patient was instructed to call Dr. Courtney' [facility] and make an appointment and see Dr. Courtney next Sunday which is going to be 01/07/2019. The case was discussed with Dr. Courtney in his office and I informed him of the process and clinical situation o f the patient. He agrees with the management. Dictated By: EDELMIRA ALEJO MD PS/NTS Conf#: [id number] DID#: [id number] CC: CALDERON PEREZ MD; PRITESH COURTNEY MD; EL LYNN MD;*EndCC*
== END 2018-12-31 16:36 | disposition home health service (06) | DRG 331 ==
LOC: REC 08:20 → EDBD 09:00 → MS1 16:49
PROVIDERS: ADMIT Surgery Surgical Oncology; ATTEND Internal Medicine
PROC: 0D1B0Z4 Bypass Ileum to Cutaneous, Open Approach (ICD-10-PCS; 2018-12-23)
PROC: 0DJD8ZZ Inspection of Lower Intestinal Tract, Via Natural or Artificial Opening Endoscopic (ICD-10-PCS; 2018-12-23)
PROC: 0DBP0ZZ Excision of Rectum, Open Approach (ICD-10-PCS; principal; 2018-12-23 10:30)
DX: C20 Malignant neoplasm of rectum (principal); I10 Essential (primary) hypertension; E66.9 Obesity, unspecified; Z68.30 Body mass index [BMI] 30.0-30.9, adult; D72.829 Elevated white blood cell count, unspecified; R00.0 Tachycardia, unspecified; D63.8 Anemia in other chronic diseases classified elsewhere; Z92.21 Personal history of antineoplastic chemotherapy; Z92.3 Personal history of irradiation
CPT/HCPCS: 71045; 80048; 80053; 81001; 83735; 84100; 85025; 85610; 85730; 86850; 86900; 86901; 86920; 87070; 87086; 88307; 88331; 97116; 97161; 97530; J0295; J0690; J1100; J1170; J2175; J2250; J2274; J2405; J2543; J2710; J2795; J3010; J3480; J7030; J7040; J7050

== ENCOUNTER 2019-03-07 16:09 | Emergency (ER) | payer SELFPAY ==
[~2019-03-07] VITALS: Ht 167.6 cm; Wt 75.5 kg
[2019-03-07 16:27] VITALS: Ht 167.6 cm; Wt 75.5 kg
[2019-03-07 17:50] VITALS: BP 134/65; PULSE 72; RESP 20
--- NOTE | 2019-03-07 19:12 | ERD ---
ER Documentation Chief Complaint Chief Complaint sent by Dr Courtney for c/o redness around stoma HPI Patient is a 58-year-old male with colon cancer who presents for redness around his ileostomy. He called Dr. Courtney who sent him to the emergency department for evaluation. He has irritation and redness around the ileostomy site. He said the symptoms started about 1 week ago. He has no fevers. He previously was given Flagyl and Augmentin in January and he finished that course. Upon review of old medical records this is the patient's second visit to the ER since December 17. ROS All systems reviewed and are negative except as per history of present illness. Medications Home Meds No Active Prescriptions or Reported Meds Allergies Allergies: Coded Allergies: No Known Drug Allergies (Verified Allergy, Unknown, 03/07/19) PMhx/Soc History of Surgery: Yes (L KNEE SX WITH SCREWS) Anesthesia Reaction: No Hx 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 Disorder: No Hx Respiratory Disorders: No Hx Cardiac Disorders: No Hx Psychiatric Problems: No Hx Miscellaneous Medical Probl: Yes (RECATAL CANCER S/P CHEMO A D RADIATION THERAPY.) Hx Alcohol Use: Yes (6 YEARS AGO) Hx Substance Use: No Hx Tobacco Use: No Smoking Status: Never smoker FmHx Family History: No diabetes Physical Exam Vitals Vital Signs Date Temp Pulse Resp B/P (MAP) Pulse Ox O2 O2 Flow FiO2 Time Delivery Rate 03/07/19 72 20 134/65 100 Room Air 17:50 (88) 03/07/19 97.3 112 20 139/97 98 16:27 (111) Physical Exam Const: No acute distress Head: Atraumatic Eyes: Normal Conjunctiva ENT: Normal External Ears, Nose and Mouth. Neck: Full range of motion. No meningismus. Resp: Clear to auscultation bilaterally Cardio: Regular rate and rhythm, no murmurs Abd: Soft, non tender, non distended. Normal bowel sounds Skin: Redness and irritation with skin breakdown around the ileostomy site Back: No midline or flank tenderness Ext: No cyanosis, or edema Neur: Awake and alert Psych: Normal Mood and Affect Procedures/MDM Patient is a 58-year-old male who presents with skin breakdown around his ileostomy site. This is likely related to the stool contents which are irritating the skin. He was seen by Dr. Estes who recommended making a smaller hole in his ileostomy bag so that the skin would not be affected and to follow- up in Dr. Courtney's office on Sunday for barrier cream and wound check. I do not believe this is infected at this time and I believe outpatient management is appropriate. Departure Diagnosis: Primary Impression: Stoma dermatitis Condition: Fair Patient Instructions: Ileostomy: Caring For Your Stoma Referrals: PRITESH COURTNEY MD Additional Instructions: Llame al doctor MAANA y mike mina SADE PARA DENTRO DE 2-3 SCHERER.Dgale a la secretaria que nosotros le instruimos hacer esta sade.Avise o llame si christopher condicin se empeora antes de la sade. Regresa aqui si peor o no mejor. LEANDRO MUHAMMAD MD Mar 07, 2019 19:12
== END 2019-03-07 17:52 | disposition home or self-care (01) ==
LOC: E/R 16:09
DX: K94.09 Other complications of colostomy (principal); R40.2142 Coma scale, eyes open, spontaneous, at arrival to emergency department; R40.2252 Coma scale, best verbal response, oriented, at arrival to emergency department; R40.2362 Coma scale, best motor response, obeys commands, at arrival to emergency department; Z85.048 Personal history of other malignant neoplasm of rectum, rectosigmoid junction, and anus
CPT/HCPCS: 99282